=== PATIENT | male | born 1960 | race Caucasian/White ===

== ENCOUNTER 2019-11-03 15:32 | Inpatient (IN) ==
[2019-11-03] MEDS ORDERED: Morphine Sulfate 2 MG/ML SYRINGE IVP PRN (16:34)
[2019-11-03 16:37] LABS: INR 1.1
[2019-11-03 16:40] LABS: Basophils % 0.3 %; Eosinophils # 0.2 K/mcL (0.0-0.6); Eosinophils % 2.3 %; Hematocrit 36.7 % (37.5-50.1); Hemoglobin 12.2 g/dL (12.9-16.9); Immature Granulocytes % 0.4 % (0-4); Lymphocytes # 1.5 K/mcL (0.6-4.6); Lymphocytes % 21.7 %; Mean Corpuscular HGB Conc 33.2 g/dL (31.6-35.5); Mean Corpuscular Hemoglobin 30.7 pg (28.0-33.3); Mean Corpuscular Volume 92.2 fL (83.0-100.0); Mean Platelet Volume 10.1 fL (9.4-12.4); Monocytes # 0.8 K/mcL (0.0-1.3); Monocytes % 11.8 %; Neutrophils # 4.4 K/mcL (1.6-8.9); Platelet Count 217 K/mcL (140-400); Red Blood Count 3.98 M/mcL (4.19-5.50); Red Cell Distribution Width 12.6 % (11.5-14.5); Segmented Neutrophils % 63.5 %; White Blood Count 6.9 K/mcL (4.3-11.1)
[2019-11-03] MEDS ORDERED: Naloxone 0.4 MG/ML INJ IVP PRN ×2 (16:52→22:16)
[2019-11-03] MEDS ORDERED: Ondansetron 4 MG/2 ML VIAL IVP PRN ×2 (16:52→22:16)
[2019-11-03] MEDS ORDERED: 0.9 % Sodium Chloride 1,000 ML IVC SCH (17:00)
[2019-11-03] MEDS ORDERED: D5% in Water 1,000 ML IVC PRN ×2 (17:19→22:16)
[2019-11-03] MEDS ORDERED: Dextrose Gel 15 GM/37.5 ML TUBE PO PRN ×4 (17:19→22:16)
[2019-11-03] MEDS ORDERED: *HR* Dextrose 50 % in Water (Syg) 50 ML SYRINGE IVP PRN ×2 (17:19→22:16)
[2019-11-03] MEDS ORDERED: *HR* Labetalol 20 MG/4 ML SYRINGE IVP PRN ×2 (17:20→22:16)
[2019-11-03 17:46] LABS: Estimated Average Glucose 148 mg/dl
[2019-11-03] MEDS ORDERED: Insulin LISPRO 300 UNITS/3 ML VIAL SQ SCH (18:00)
[2019-11-03] MEDS ORDERED: Lidocaine 1% 20 ML MDV ONE (18:03)
[2019-11-03 18:08] LABS: Albumin 4.2 g/dL (3.5-5.7); Albumin/Globulin Ratio 1.2 (1.1-2.2); Bilirubin,Total 0.6 mg/dL (0.3-1.0); Calcium 9.8 mg/dL (8.6-10.3); Globulin 3.4 g/dL (2.4-3.5); Potassium 4.3 mEq/L (3.5-5.1); Total Protein 7.6 g/dL (6.4-8.9)
[2019-11-03] MEDS ORDERED: *HR* FentaNYL (PF) 100 MCG/2 ML VIAL ONE (18:10)
[2019-11-03] MEDS ORDERED: *HR* Midazolam HCl 2 MG/2 ML VIAL ONE (18:10)
[2019-11-03] MEDS ORDERED: *HR* Propofol 200 MG/20 ML VIAL IVP ONE (18:16)
[2019-11-03] MEDS ORDERED: Lidocaine -MPF 1% 5 ML AMPUL ONE (18:17)
[2019-11-03] MEDS ORDERED: Ondansetron 4 MG/2 ML VIAL ONE (18:17)
[2019-11-03] MEDS ORDERED: Dexamethasone 4 MG/ML VIAL ONE (18:17)
[2019-11-03] MEDS ORDERED: ROPIVACAINE/PF/NS 0.25% 1 EACH SYRINGE INTRAART ONE (18:40)
[2019-11-03] MEDS ORDERED: Ropivacaine/PF 0.5% 30 ML VIAL ONE (18:40)
[2019-11-03] MEDS ORDERED: Lidocaine -MPF 2% 2 ML VIAL ONE (19:05)
[2019-11-03] MEDS ORDERED: Acetaminophen IV 0 MG/0 ML INFUS..BTL ONE (20:55)
[2019-11-03] MEDS ORDERED: cloNIDine HCl 0.1 MG TABLET ONE (20:55)
[2019-11-03] MEDS: 0.9 % Sodium Chloride 1,000 ML IVC SCH (22:49)
[2019-11-04] MEDS: Insulin LISPRO 300 UNITS/3 ML VIAL SQ SCH ×4 (01:07→17:48)
[2019-11-04] MEDS: 0.9 % Sodium Chloride 1,000 ML IVC SCH ×2 (05:30→20:15)
[2019-11-04 07:43] LABS: Basophils # 0.1 K/mcL (0.0-0.2); Basophils % 0.8 %; Eosinophils # 0.2 K/mcL (0.0-0.6); Eosinophils % 3.7 %; Hematocrit 34.3 % (37.5-50.1); Hemoglobin 11.8 g/dL (12.9-16.9); Immature Granulocytes % 0.3 % (0-4); Lymphocytes # 1.6 K/mcL (0.6-4.6); Lymphocytes % 27.4 %; Mean Corpuscular HGB Conc 34.4 g/dL (31.6-35.5); Mean Corpuscular Hemoglobin 31.1 pg (28.0-33.3); Mean Corpuscular Volume 90.5 fL (83.0-100.0); Mean Platelet Volume 10.2 fL (9.4-12.4); Monocytes # 0.7 K/mcL (0.0-1.3); Monocytes % 12.4 %; Neutrophils # 3.3 K/mcL (1.6-8.9); Platelet Count 158 K/mcL (140-400); Red Blood Count 3.79 M/mcL (4.19-5.50); Red Cell Distribution Width 12.5 % (11.5-14.5); Segmented Neutrophils % 55.4 %; White Blood Count 5.9 K/mcL (4.3-11.1)
[2019-11-04] MEDS ORDERED: *HR* Heparin 5,000 UNIT/ML VIAL SQ SCH (08:00)
[2019-11-04] MEDS: *HR* Heparin 5,000 UNIT/ML VIAL SQ SCH ×2 (09:00→17:48)
[2019-11-04 09:05] LABS: BUN/Creatinine Ratio 19 (6-26); Blood Urea Nitrogen 23 mg/dL (8-23); Calcium 9.4 mg/dL (8.6-10.3); Carbon Dioxide 22 mEq/L (23-29); Chloride 106 mEq/L (98-107); Glucose 126 mg/dL (70-105); Osmolality,Calculated 285 (280-300); Potassium 4.2 mEq/L (3.5-5.1); Sodium 135 mEq/L (136-145); eGFR For African Americans > 60 (> 60); eGFR For Non-African Americans 59 (> 60)
[2019-11-04] MEDS ORDERED: Morphine Sulfate 2 MG/ML SYRINGE IVP SCH (13:58)
[2019-11-04] MEDS: Morphine Sulfate 2 MG/ML SYRINGE IVP PRN ×2 (14:21→20:15)
[2019-11-05] MEDS: Insulin LISPRO 300 UNITS/3 ML VIAL SQ SCH ×4 (01:01→18:54)
[2019-11-05] MEDS: Morphine Sulfate 2 MG/ML SYRINGE IVP PRN ×3 (02:31→11:58)
[2019-11-05] MEDS: 0.9 % Sodium Chloride 1,000 ML IVC SCH (02:31)
[2019-11-05] MEDS: *HR* Heparin 5,000 UNIT/ML VIAL SQ SCH ×2 (06:14→18:54)
[2019-11-05] MEDS ORDERED: 0.9 % Sodium Chloride 1,000 ML IVC SCH ×2 (12:30→17:46)
[2019-11-05] MEDS ORDERED: ROPIVACAINE/PF/NS 0.25% 1 EACH SYRINGE INTRAART ONE (14:06)
[2019-11-05] MEDS ORDERED: Ropivacaine/PF 0.5% 30 ML VIAL ONE (14:06)
[2019-11-05] MEDS ORDERED: Lidocaine -MPF 2% 5 ML VIAL ONE (14:12)
[2019-11-05] MEDS ORDERED: *HR* Midazolam HCl 5 MG/5 ML VIAL IVP ONE (14:13)
[2019-11-05] MEDS ORDERED: *HR* FentaNYL (PF) 100 MCG/2 ML VIAL ONE ×2 (14:14→16:12)
[2019-11-05] MEDS ORDERED: Ondansetron 4 MG/2 ML VIAL IVP ONE ×2 (14:17→17:46)
[2019-11-05] MEDS ORDERED: *HR* Promethazine 25 MG/ML VIAL IVP PRN ×2 (14:17→17:46)
[2019-11-05] MEDS ORDERED: *HR* OxyCODONE Immed Rel 5 MG TABLET PO PRN ×2 (14:17→17:46)
[2019-11-05] MEDS ORDERED: CeFAZolin Syr 2,000MG/20 ML 2,000 MG/20 ML SYRINGE IVPB ONE (14:30)
[2019-11-05] MEDS ORDERED: *HR* Propofol 200 MG/20 ML VIAL IVP ONE ×2 (15:01→16:49)
[2019-11-05] MEDS ORDERED: Acetaminophen IV 1,000 MG/100 ML INFUS..BTL ONE (15:08)
[2019-11-05] MEDS ORDERED: *HR* Succinylcholine 200 MG/10 ML VIAL IVP ONE (15:08)
[2019-11-05] MEDS ORDERED: Ondansetron 4 MG/2 ML VIAL ONE (15:08)
[2019-11-05] MEDS ORDERED: Lidocaine -MPF 2% 2 ML VIAL ONE (15:09)
[2019-11-05] MEDS ORDERED: Propofol 500 MG/50 ML INFUS..BTL ONE ×2 (15:09→15:41)
[2019-11-05] MEDS ORDERED: *HR* Labetalol 20 MG/4 ML SYRINGE IVP ONE (15:55)
[2019-11-05] MEDS ORDERED: *HR* HYDROMORPHONE 2 MG/ML VIAL ONE (17:08)
[2019-11-05] MEDS ORDERED: *HR* Dextrose 50 % in Water (Syg) 50 ML SYRINGE IVP PRN (17:46)
[2019-11-05] MEDS ORDERED: Dextrose Gel 15 GM/37.5 ML TUBE PO PRN ×2 (17:46)
[2019-11-05] MEDS ORDERED: Naloxone 0.4 MG/ML INJ IVP PRN (17:46)
[2019-11-05] MEDS ORDERED: Ondansetron 4 MG/2 ML VIAL IVP PRN (17:46)
[2019-11-05] MEDS ORDERED: D5% in Water 1,000 ML IVC PRN (17:46)
[2019-11-06] MEDS: Insulin LISPRO 300 UNITS/3 ML VIAL SQ SCH ×4 (00:21→18:07)
[2019-11-06] MEDS: Morphine Sulfate 2 MG/ML SYRINGE IVP PRN ×4 (01:59→21:39)
[2019-11-06] MEDS: *HR* Heparin 5,000 UNIT/ML VIAL SQ SCH ×2 (05:11→18:06)
[2019-11-07] MEDS: Insulin LISPRO 300 UNITS/3 ML VIAL SQ SCH ×4 (00:07→14:54)
[2019-11-07] MEDS: Morphine Sulfate 2 MG/ML SYRINGE IVP PRN ×5 (03:23→22:52)
[2019-11-07] MEDS: *HR* Heparin 5,000 UNIT/ML VIAL SQ SCH ×2 (06:13→14:53)
[2019-11-07] MEDS: Lisinopril 20 MG TABLET PO SCH (08:04)
[2019-11-07] MEDS: cephALEXin 500 MG CAPSULE PO SCH ×2 (15:19→19:58)
[2019-11-07] MEDS: *HR* Labetalol 20 MG/4 ML SYRINGE IVP PRN (20:08)
[2019-11-08] MEDS: *HR* Labetalol 20 MG/4 ML SYRINGE IVP PRN ×2 (00:11→05:58)
[2019-11-08] MEDS: Insulin LISPRO 300 UNITS/3 ML VIAL SQ SCH ×4 (00:16→16:45)
[2019-11-08] MEDS: *HR* Heparin 5,000 UNIT/ML VIAL SQ SCH ×2 (05:57→16:43)
[2019-11-08] MEDS: Morphine Sulfate 2 MG/ML SYRINGE IVP PRN ×5 (05:58→23:36)
[2019-11-08] MEDS: cephALEXin 500 MG CAPSULE PO SCH ×3 (08:20→19:23)
[2019-11-08] MEDS: Lisinopril 20 MG TABLET PO SCH (08:20)
[2019-11-08] MEDS ORDERED: Insulin LISPRO 300 UNITS/3 ML VIAL SQ SCH (21:00)
[2019-11-09] MEDS: *HR* Heparin 5,000 UNIT/ML VIAL SQ SCH (05:07)
[2019-11-09] MEDS: Morphine Sulfate 2 MG/ML SYRINGE IVP PRN ×2 (05:08→10:56)
[2019-11-09] MEDS: Insulin LISPRO 300 UNITS/3 ML VIAL SQ SCH ×2 (07:31→13:36)
[2019-11-09] MEDS: Lisinopril 20 MG TABLET PO SCH (08:42)
[2019-11-09] MEDS: cephALEXin 500 MG CAPSULE PO SCH ×2 (08:42→15:21)
[2019-11-09 15:38] VITALS: BP 160/86
[2019-11-09] MEDS ORDERED: *HR* Metformin 500 MG TABLET PO SCH (21:00)
== END 2019-11-09 17:23 | DRG 313 ==
LOC: 3NENU 15:32 → EMEROOARM 15:32 → SUATTDRO 19:15 → 3NENU 19:39 → SUATTDRO 11-04 11:55
PROVIDERS: ADMIT Internal Medicine; ATTEND Internal Medicine

== ENCOUNTER 2020-07-26 11:54 | Inpatient (IN) ==
[2020-07-26 13:32] LABS: BUN/Creatinine Ratio 23 (6-26); Blood Urea Nitrogen 31 mg/dL (8-23); C-Reactive Protein 81 mg/L (Less than 10); Calcium 10.3 mg/dL (8.6-10.3); Carbon Dioxide 23 mEq/L (23-29); Chloride 97 mEq/L (98-107); Glucose 274 mg/dL (70-105); Osmolality,Calculated 288 (280-300); Potassium 4.6 mEq/L (3.5-5.1); Sodium 131 mEq/L (136-145); eGFR For African Americans > 60 (> 60); eGFR For Non-African Americans 53 (> 60)
[2020-07-26 13:35] LABS: Eosinophils % 0.8 %; Lymphocytes % 13.4 %; Mean Platelet Volume 9.3 fL (9.4-12.4)
[2020-07-26 13:37] LABS: Basophils % 0.4 %; Eosinophils # 0.1 K/mcL (0.0-0.6); Hematocrit 40.2 % (37.5-50.1); Hemoglobin 13.3 g/dL (12.9-16.9); Immature Granulocytes % 1.7 % (0-4); Immature Platelets 2.4 % (1.1-6.1); Lymphocytes # 1.4 K/mcL (0.6-4.6); Mean Corpuscular HGB Conc 33.1 g/dL (31.6-35.5); Mean Corpuscular Hemoglobin 30.1 pg (28.0-33.3); Monocytes % 9.8 %; Neutrophils # 7.8 K/mcL (1.6-8.9); Platelet Count 420 K/mcL (140-400); Red Blood Count 4.42 M/mcL (4.19-5.50); Red Cell Distribution Width 12.6 % (11.5-14.5); Segmented Neutrophils % 73.9 %; White Blood Count 10.6 K/mcL (4.3-11.1)
[2020-07-26] MEDS ORDERED: *HR* FentaNYL (PF) 100 MCG/2 ML VIAL IVP ONE ×2 (13:44→16:01)
[2020-07-26] MEDS ORDERED: 0.9 % Sodium Chloride 1,000 ML IVC ONE (13:44)
[2020-07-26] MEDS ORDERED: Vancomycin 1,500 MG/265 ML IV.SOLN IVPB ONE (14:35)
[2020-07-26] MEDS ORDERED: Piperacillin/Tazobactam 3.375 GM in 0.9 % Sodium Chloride Mini Bag 100 ML IVPB ONE (14:35)
[2020-07-26] MEDS ORDERED: Naloxone 0.4 MG/ML INJ IVP PRN (16:14)
[2020-07-26 17:17] LABS: Adenovirus Not Detected (Not Detect); Coronavirus 229E Not Detected (Not Detect); Coronavirus HKU1 Not Detected (Not Detect); Coronavirus NL63 Not Detected (Not Detect); Coronavirus OC43 Not Detected (Not Detect)
[2020-07-26 17:18] LABS: Bordetella Pertussis Not Detected (Not Detect); Chlamydophila pneumoniae Not Detected (Not Detect); Human Metapneumovirus Not Detected (Not Detect); Human Rhinovirus/Enterovirus Not Detected (Not Detect); Influenza A Subtype 2009 H1 Not Detected (Not Detect); Influenza B Not Detected (Not Detect); Mycoplasma pneumoniae Not Detected (Not Detect); Parainfluenza Virus 1 Not Detected (Not Detect); Parainfluenza Virus 2 Not Detected (Not Detect); Parainfluenza Virus 3 Not Detected (Not Detect); Parainfluenza Virus 4 Not Detected (Not Detect); Respiratory Syncytial Virus Not Detected (Not Detect); SARS-CoV-2 Not Detected (Not Detect)
[2020-07-26] MEDS ORDERED: D5% in Water 1,000 ML IVC PRN (18:06)
[2020-07-26] MEDS ORDERED: Dextrose Gel 15 GM/37.5 ML TUBE PO PRN ×2 (18:06)
[2020-07-26] MEDS ORDERED: Acetaminophen 325 MG TABLET PO PRN (18:06)
[2020-07-26] MEDS ORDERED: *HR* Dextrose 50 % in Water (Vial) 50 ML VIAL IVP PRN (18:06)
[2020-07-26] MEDS: 0.9 % Sodium Chloride 1,000 ML IVC SCH (20:12)
[2020-07-26 20:54] LABS: INR 1.2
[2020-07-26] MEDS ORDERED: Insulin LISPRO 300 UNITS/3 ML VIAL SQ SCH (21:00)
[2020-07-26] MEDS: Piperacillin/Tazobactam 3.375 GM in 0.9 % Sodium Chloride Mini Bag 100 ML IVPB SCH (23:27)
[2020-07-26] MEDS: *HR* Heparin 5,000 UNIT/ML VIAL SQ SCH (23:27)
[2020-07-27 03:38] LABS: Basophils # 0.1 K/mcL (0.0-0.2); Basophils % 0.9 %; Eosinophils # 0.2 K/mcL (0.0-0.6); Eosinophils % 1.6 %; Hematocrit 37.9 % (37.5-50.1); Hemoglobin 12.3 g/dL (12.9-16.9); Immature Granulocytes % 2.8 % (0-4); Lymphocytes # 2.1 K/mcL (0.6-4.6); Lymphocytes % 21.9 %; Mean Corpuscular HGB Conc 32.5 g/dL (31.6-35.5); Mean Corpuscular Hemoglobin 30.1 pg (28.0-33.3); Mean Corpuscular Volume 92.7 fL (83.0-100.0); Mean Platelet Volume 8.9 fL (9.4-12.4); Monocytes # 1.2 K/mcL (0.0-1.3); Monocytes % 12.5 %; Neutrophils # 5.8 K/mcL (1.6-8.9); Platelet Count 284 K/mcL (140-400); Red Blood Count 4.09 M/mcL (4.19-5.50); Red Cell Distribution Width 12.8 % (11.5-14.5); Segmented Neutrophils % 60.3 %; White Blood Count 9.5 K/mcL (4.3-11.1)
[2020-07-27 04:04] LABS: BUN/Creatinine Ratio 25 (6-26); Blood Urea Nitrogen 30 mg/dL (8-23); Calcium 9.7 mg/dL (8.6-10.3); Carbon Dioxide 23 mEq/L (23-29); Chloride 100 mEq/L (98-107); Glucose 242 mg/dL (70-105); Osmolality,Calculated 288 (280-300); Potassium 4.4 mEq/L (3.5-5.1); Sodium 132 mEq/L (136-145); eGFR For African Americans > 60 (> 60); eGFR For Non-African Americans > 60 (> 60)
[2020-07-27 04:30] LABS: Estimated Average Glucose 226 mg/dl; Hemoglobin A1C 9.5 %
[2020-07-27] MEDS: Vancomycin 1,500 MG/265 ML IV.SOLN IVPB SCH ×2 (04:42→16:40)
[2020-07-27] MEDS: *HR* Heparin 5,000 UNIT/ML VIAL SQ SCH ×3 (05:10→21:30)
[2020-07-27] MEDS: Piperacillin/Tazobactam 3.375 GM in 0.9 % Sodium Chloride Mini Bag 100 ML IVPB SCH ×3 (09:06→23:11)
[2020-07-27] MEDS: Insulin LISPRO 300 UNITS/3 ML VIAL SQ SCH ×4 (09:08→21:15)
[2020-07-27] MEDS: 0.9 % Sodium Chloride 1,000 ML IVC SCH ×2 (13:07→21:29)
[2020-07-27] MEDS ORDERED: *HR* FentaNYL (PF) 100 MCG/2 ML VIAL IVP ONE (13:46)
[2020-07-27] MEDS ORDERED: *HR* FentaNYL (PF) 100 MCG/2 ML VIAL ONE (15:38)
[2020-07-27] MEDS ORDERED: *HR* Midazolam HCl 2 MG/2 ML VIAL ONE (15:38)
[2020-07-27] MEDS ORDERED: *HR* Propofol 200 MG/20 ML VIAL IVP ONE (15:42)
[2020-07-27] MEDS ORDERED: Lidocaine -MPF 2% 2 ML VIAL ONE (15:42)
[2020-07-27] MEDS ORDERED: Ondansetron 4 MG/2 ML VIAL ONE (15:42)
[2020-07-27] MEDS ORDERED: *HR* Succinylcholine 200 MG/10 ML VIAL IVP ONE (15:42)
[2020-07-27] MEDS ORDERED: Dexamethasone 4 MG/ML VIAL ONE (15:42)
[2020-07-27] MEDS ORDERED: Lidocaine -MPF 4% 5 ML AMPUL ONE (15:44)
[2020-07-27] MEDS ORDERED: Famotidine 20 MG/2 ML VIAL IVP ONE (15:55)
[2020-07-27] MEDS ORDERED: ROPIVACAINE/PF/NS 0.25% 1 EACH SYRINGE INTRAART ONE (16:01)
[2020-07-27] MEDS ORDERED: *HR* Labetalol 20 MG/4 ML SYRINGE IVP PRN ×2 (16:01→20:35)
[2020-07-27] MEDS ORDERED: *HR* Promethazine 25 MG/ML VIAL IVP PRN (16:01)
[2020-07-27] MEDS ORDERED: Ropivacaine/PF 0.5% 30 ML VIAL ONE (16:01)
[2020-07-27] MEDS ORDERED: *HR* HYDROmorphone PF 0.5 MG/0.5 ML SYRINGE IVP PRN (16:01)
[2020-07-27] MEDS ORDERED: Famotidine 20 MG/2 ML VIAL ONE (16:01)
[2020-07-27] MEDS ORDERED: Ondansetron 4 MG/2 ML VIAL IVP ONE (16:01)
[2020-07-27] MEDS ORDERED: EPHEDrine 50 MG/ML VIAL ONE (16:58)
[2020-07-27] MEDS ORDERED: *HR* PHENYLEPHRINE 1,000 MCG/10 ML SYRINGE IVP ONE ×3 (17:04→19:03)
[2020-07-27] MEDS ORDERED: *HR* HYDROMORPHONE 2 MG/ML VIAL ONE (18:07)
[2020-07-27] MEDS ORDERED: *HR* Labetalol 20 MG/4 ML SYRINGE IVP ONE (19:59)
[2020-07-27] MEDS ORDERED: Naloxone 0.4 MG/ML INJ IVP PRN (20:35)
[2020-07-27] MEDS ORDERED: Acetaminophen 325 MG TABLET PO PRN (20:35)
[2020-07-27] MEDS ORDERED: Dextrose Gel 15 GM/37.5 ML TUBE PO PRN ×2 (20:35)
[2020-07-27] MEDS ORDERED: *HR* Dextrose 50 % in Water (Vial) 50 ML VIAL IVP PRN (20:35)
[2020-07-27] MEDS ORDERED: D5% in Water 1,000 ML IVC PRN (20:35)
[2020-07-27] MEDS ORDERED: Morphine Sulfate 2 MG/ML SYRINGE IVP PRN (22:53)
[2020-07-28 02:18] LABS: Basophils % 0.3 %; Eosinophils % 0.1 %; Hematocrit 34.1 % (37.5-50.1); Hemoglobin 10.9 g/dL (12.9-16.9); Immature Granulocytes % 2.2 % (0-4); Lymphocytes # 0.7 K/mcL (0.6-4.6); Lymphocytes % 7.2 %; Mean Corpuscular Hemoglobin 29.4 pg (28.0-33.3); Mean Corpuscular Volume 91.9 fL (83.0-100.0); Mean Platelet Volume 8.7 fL (9.4-12.4); Monocytes # 0.4 K/mcL (0.0-1.3); Neutrophils # 7.9 K/mcL (1.6-8.9); Platelet Count 283 K/mcL (140-400); Red Blood Count 3.71 M/mcL (4.19-5.50); Red Cell Distribution Width 12.9 % (11.5-14.5); Segmented Neutrophils % 86.2 %; White Blood Count 9.1 K/mcL (4.3-11.1)
[2020-07-28 02:36] LABS: Alanine Aminotransferase 94 Units/L (7-52); Albumin 3.2 g/dL (3.5-5.7); Albumin/Globulin Ratio 0.9 (1.1-2.2); Alkaline Phosphatase 259 Units/L (34-104); Aspartate Amino Transferase 38 Units/L (13-39); BUN/Creatinine Ratio 23 (6-26); Bilirubin,Total 0.3 mg/dL (0.3-1.0); Blood Urea Nitrogen 25 mg/dL (8-23); Calcium 9.1 mg/dL (8.6-10.3); Carbon Dioxide 18 mEq/L (23-29); Chloride 105 mEq/L (98-107); Globulin 3.7 g/dL (2.4-3.5); Glucose 216 mg/dL (70-105); Osmolality,Calculated 291 (280-300); Potassium 5.2 mEq/L (3.5-5.1); Sodium 135 mEq/L (136-145); Total Protein 6.9 g/dL (6.4-8.9); eGFR For African Americans > 60 (> 60); eGFR For Non-African Americans > 60 (> 60)
[2020-07-28] MEDS ORDERED: Vancomycin 1,500 MG/265 ML IV.SOLN IVPB SCH (03:00)
[2020-07-28] MEDS: *HR* Heparin 5,000 UNIT/ML VIAL SQ SCH ×3 (05:02→21:37)
[2020-07-28] MEDS: Piperacillin/Tazobactam 3.375 GM in 0.9 % Sodium Chloride Mini Bag 100 ML IVPB SCH ×2 (08:36→16:42)
[2020-07-28] MEDS: 0.9 % Sodium Chloride 1,000 ML IVC SCH (08:44)
[2020-07-28] MEDS: Insulin LISPRO 300 UNITS/3 ML VIAL SQ SCH ×4 (08:50→21:22)
[2020-07-28] MEDS ORDERED: Vancomycin 1,250 MG/262.5 ML IV.SOLN IVPB SCH (09:00)
[2020-07-28] MEDS ORDERED: lisinopriL 20 MG TABLET PO SCH ×2 (09:00)
[2020-07-28] MEDS: *HR* HYDROmorphone PF 0.5 MG/0.5 ML SYRINGE IVP PRN (20:09)
[2020-07-29] MEDS: Piperacillin/Tazobactam 3.375 GM in 0.9 % Sodium Chloride Mini Bag 100 ML IVPB SCH ×4 (00:20→23:16)
[2020-07-29] MEDS: 0.9 % Sodium Chloride 1,000 ML IVC SCH ×2 (00:20→14:08)
[2020-07-29] MEDS: *HR* Heparin 5,000 UNIT/ML VIAL SQ SCH ×3 (04:48→21:09)
[2020-07-29 06:44] LABS: Hematocrit 38.3 % (37.5-50.1); Hemoglobin 11.6 g/dL (12.9-16.9); Mean Corpuscular HGB Conc 30.3 g/dL (31.6-35.5); Mean Corpuscular Hemoglobin 29.3 pg (28.0-33.3); Mean Corpuscular Volume 96.7 fL (83.0-100.0); Mean Platelet Volume 8.9 fL (9.4-12.4); Platelet Count 281 K/mcL (140-400); Red Blood Count 3.96 M/mcL (4.19-5.50); Red Cell Distribution Width 12.9 % (11.5-14.5); White Blood Count 8.2 K/mcL (4.3-11.1)
[2020-07-29 07:07] LABS: BUN/Creatinine Ratio 19 (6-26); Blood Urea Nitrogen 19 mg/dL (8-23); Calcium 9.1 mg/dL (8.6-10.3); Carbon Dioxide 19 mEq/L (23-29); Chloride 107 mEq/L (98-107); Glucose 119 mg/dL (70-105); Osmolality,Calculated 285 (280-300); Potassium 4.4 mEq/L (3.5-5.1); Sodium 136 mEq/L (136-145); eGFR For African Americans > 60 (> 60); eGFR For Non-African Americans > 60 (> 60)
[2020-07-29] MEDS: *HR* Promethazine 25 MG/ML VIAL IVP PRN (08:38)
[2020-07-29] MEDS: Insulin LISPRO 300 UNITS/3 ML VIAL SQ SCH ×4 (08:41→21:11)
[2020-07-29] MEDS ORDERED: polyethylene glycoL 3350 17 GM POWD.PACK PO PRN (10:22)
[2020-07-29] MEDS: *HR* HYDROmorphone PF 0.5 MG/0.5 ML SYRINGE IVP PRN (23:22)
[2020-07-30] MEDS ORDERED: *HR* Labetalol 20 MG/4 ML SYRINGE IVP PRN (00:14)
[2020-07-30] MEDS: *HR* Promethazine 25 MG/ML VIAL IVP PRN (04:21)
[2020-07-30] MEDS: *HR* Heparin 5,000 UNIT/ML VIAL SQ SCH ×3 (05:12→22:25)
[2020-07-30] MEDS: 0.9 % Sodium Chloride 1,000 ML IVC SCH (07:02)
[2020-07-30] MEDS: Piperacillin/Tazobactam 3.375 GM in 0.9 % Sodium Chloride Mini Bag 100 ML IVPB SCH ×3 (08:46→23:38)
[2020-07-30] MEDS: Insulin LISPRO 300 UNITS/3 ML VIAL SQ SCH ×4 (08:48→22:26)
[2020-07-30] MEDS: Ondansetron 4 MG/2 ML VIAL IVP PRN ×2 (09:26→22:23)
[2020-07-30] MEDS: *HR* HYDROmorphone PF 0.5 MG/0.5 ML SYRINGE IVP PRN (22:19)
[2020-07-31] MEDS: *HR* Heparin 5,000 UNIT/ML VIAL SQ SCH ×3 (05:30→20:49)
[2020-07-31] MEDS: Insulin LISPRO 300 UNITS/3 ML VIAL SQ SCH ×4 (08:34→20:50)
[2020-07-31] MEDS: Piperacillin/Tazobactam 3.375 GM in 0.9 % Sodium Chloride Mini Bag 100 ML IVPB SCH ×3 (08:52→23:45)
[2020-07-31 10:18] LABS: Vancomycin,Trough 12 mcg/mL (5-10)
[2020-07-31 10:32] LABS: BUN/Creatinine Ratio 14 (6-26); Blood Urea Nitrogen 12 mg/dL (8-23); eGFR For African Americans > 60 (> 60); eGFR For Non-African Americans > 60 (> 60)
[2020-07-31] MEDS: *HR* HYDROmorphone PF 0.5 MG/0.5 ML SYRINGE IVP PRN (11:31)
[2020-07-31] MEDS ORDERED: Ketorolac 15 MG/ML VIAL IVP ONE (15:40)
[2020-07-31] MEDS: amLODIPine 5 MG TABLET PO SCH (16:32)
[2020-08-01] MEDS: Ondansetron 4 MG/2 ML VIAL IVP PRN ×2 (00:32→08:00)
[2020-08-01] MEDS: *HR* Heparin 5,000 UNIT/ML VIAL SQ SCH ×3 (05:13→23:48)
[2020-08-01 05:22] LABS: Mean Corpuscular HGB Conc 30.9 g/dL (31.6-35.5); Mean Corpuscular Volume 93.8 fL (83.0-100.0); Mean Platelet Volume 8.9 fL (9.4-12.4); Platelet Count 279 K/mcL (140-400); Red Blood Count 3.41 M/mcL (4.19-5.50); White Blood Count 8.1 K/mcL (4.3-11.1)
[2020-08-01 05:23] LABS: Hemoglobin 9.9 g/dL (12.9-16.9)
[2020-08-01 06:07] LABS: BUN/Creatinine Ratio 15 (6-26); Blood Urea Nitrogen 12 mg/dL (8-23); Calcium 8.9 mg/dL (8.6-10.3); Carbon Dioxide 19 mEq/L (23-29); Chloride 106 mEq/L (98-107); Glucose 109 mg/dL (70-105); Osmolality,Calculated 282 (280-300); Potassium 3.8 mEq/L (3.5-5.1); Sodium 136 mEq/L (136-145); eGFR For African Americans > 60 (> 60); eGFR For Non-African Americans > 60 (> 60)
[2020-08-01] MEDS: lisinopriL 20 MG TABLET PO SCH (07:54)
[2020-08-01] MEDS: Piperacillin/Tazobactam 3.375 GM in 0.9 % Sodium Chloride Mini Bag 100 ML IVPB SCH ×2 (07:55→17:36)
[2020-08-01] MEDS: amLODIPine 5 MG TABLET PO SCH (07:55)
[2020-08-01] MEDS: Insulin LISPRO 300 UNITS/3 ML VIAL SQ SCH ×4 (07:57→20:38)
[2020-08-01] MEDS ORDERED: *HR* Labetalol 20 MG/4 ML SYRINGE IVP PRN (14:19)
[2020-08-01] MEDS: carvediloL 6.25 MG TABLET PO SCH (17:36)
[2020-08-02] MEDS: Piperacillin/Tazobactam 3.375 GM in 0.9 % Sodium Chloride Mini Bag 100 ML IVPB SCH ×2 (01:25→08:21)
[2020-08-02 04:59] LABS: Basophils % 0.4 %; Eosinophils # 0.2 K/mcL (0.0-0.6); Eosinophils % 2.1 %; Hematocrit 34.7 % (37.5-50.1); Hemoglobin 11.2 g/dL (12.9-16.9); Immature Granulocytes % 1.2 % (0-4); Lymphocytes # 1.6 K/mcL (0.6-4.6); Lymphocytes % 16.8 %; Mean Corpuscular HGB Conc 32.3 g/dL (31.6-35.5); Mean Corpuscular Hemoglobin 30.3 pg (28.0-33.3); Mean Corpuscular Volume 93.8 fL (83.0-100.0); Mean Platelet Volume 9.2 fL (9.4-12.4); Monocytes % 10.2 %; Neutrophils # 6.6 K/mcL (1.6-8.9); Platelet Count 320 K/mcL (140-400); Red Cell Distribution Width 12.9 % (11.5-14.5); Segmented Neutrophils % 69.3 %; White Blood Count 9.5 K/mcL (4.3-11.1)
[2020-08-02 05:21] LABS: BUN/Creatinine Ratio 12 (6-26); Blood Urea Nitrogen 10 mg/dL (8-23); Calcium 9.4 mg/dL (8.6-10.3); Carbon Dioxide 20 mEq/L (23-29); Chloride 106 mEq/L (98-107); Glucose 108 mg/dL (70-105); Osmolality,Calculated 282 (280-300); Potassium 3.8 mEq/L (3.5-5.1); Sodium 136 mEq/L (136-145); eGFR For African Americans > 60 (> 60); eGFR For Non-African Americans > 60 (> 60)
[2020-08-02] MEDS: *HR* Heparin 5,000 UNIT/ML VIAL SQ SCH (05:47)
[2020-08-02 06:37] VITALS: BP 145/81
[2020-08-02] MEDS: amLODIPine 5 MG TABLET PO SCH (08:22)
[2020-08-02] MEDS: lisinopriL 20 MG TABLET PO SCH (08:23)
[2020-08-02] MEDS: Insulin LISPRO 300 UNITS/3 ML VIAL SQ SCH ×2 (08:23→12:30)
[2020-08-02] MEDS: carvediloL 6.25 MG TABLET PO SCH (08:23)
[2020-08-02] MEDS ORDERED: Lidocaine -MPF 1% 5 ML AMPUL INFILT ONE (11:56)
== END 2020-08-02 15:26 | disposition home health service (06) | DRG 313 ==
LOC: EMEROOARM 11:54 → 3NENU 11:54 → SUATTDRO 07-27 13:09
PROVIDERS: ADMIT Internal Medicine; ATTEND Internal Medicine

== ENCOUNTER 2020-09-08 08:48 | Inpatient (IN) ==
[2020-09-08] MEDS ORDERED: Isovue-370 500 ML BOTTLE IVP ONE (09:17)
[2020-09-08 09:53] LABS: Basophils # 0.1 K/mcL (0.0-0.2); Basophils % 0.7 %; Eosinophils # 0.3 K/mcL (0.0-0.6); Eosinophils % 3.2 %; Hematocrit 37.5 % (37.5-50.1); Hemoglobin 12.2 g/dL (12.9-16.9); Immature Granulocytes % 0.5 % (0-4); Lymphocytes # 1.6 K/mcL (0.6-4.6); Lymphocytes % 19.7 %; Mean Corpuscular HGB Conc 32.5 g/dL (31.6-35.5); Mean Corpuscular Hemoglobin 28.6 pg (28.0-33.3); Mean Corpuscular Volume 87.8 fL (83.0-100.0); Mean Platelet Volume 9.7 fL (9.4-12.4); Monocytes # 0.9 K/mcL (0.0-1.3); Monocytes % 11.2 %; Neutrophils # 5.3 K/mcL (1.6-8.9); Platelet Count 239 K/mcL (140-400); Red Blood Count 4.27 M/mcL (4.19-5.50); Red Cell Distribution Width 13.7 % (11.5-14.5); Segmented Neutrophils % 64.7 %; White Blood Count 8.2 K/mcL (4.3-11.1)
[2020-09-08 10:11] LABS: BUN/Creatinine Ratio 9 (6-26); Blood Urea Nitrogen 15 mg/dL (8-23); Calcium 9.5 mg/dL (8.6-10.3); Carbon Dioxide 18 mEq/L (23-29); Chloride 104 mEq/L (98-107); Glucose 142 mg/dL (70-105); Osmolality,Calculated 279 (280-300); Sodium 133 mEq/L (136-145); eGFR For African Americans 48 (> 60); eGFR For Non-African Americans 40 (> 60)
[2020-09-08 10:14] LABS: C-Reactive Protein < 5 mg/L (Less than 10)
[2020-09-08] MEDS ORDERED: 0.9 % Sodium Chloride 1,000 ML IVC ONE (11:08)
[2020-09-08] MEDS ORDERED: Ondansetron 4 MG/2 ML VIAL IVP STA (11:28)
[2020-09-08] MEDS ORDERED: Naloxone 0.4 MG/ML INJ IVP PRN (15:26)
[2020-09-08] MEDS ORDERED: *HR* Dextrose 50 % in Water (Vial) 50 ML VIAL IVP PRN (15:39)
[2020-09-08] MEDS ORDERED: Dextrose Gel 15 GM/37.5 ML TUBE PO PRN ×2 (15:39)
[2020-09-08] MEDS ORDERED: D5% in Water 1,000 ML IVC PRN (15:39)
[2020-09-08] MEDS ORDERED: *HR* Labetalol 20 MG/4 ML SYRINGE IVP PRN (15:42)
[2020-09-08] MEDS: *HR* OxyCODONE/APAP 5/325 TABLET PO PRN (16:04)
[2020-09-08] MEDS: Insulin LISPRO 300 UNITS/3 ML VIAL SQ SCH ×2 (17:40→21:10)
[2020-09-08] MEDS: 0.9 % Sodium Chloride 1,000 ML IVC SCH (18:40)
[2020-09-08] MEDS: *HR* OxyCODONE/APAP 10/325 TABLET PO PRN (21:14)
[2020-09-08] MEDS: Doxycycline 100 MG CAPSULE PO SCH (21:14)
[2020-09-08] MEDS: *HR* Heparin 5,000 UNIT/ML VIAL SQ SCH (21:14)
[2020-09-09 05:39] LABS: BUN/Creatinine Ratio 11 (6-26); Blood Urea Nitrogen 13 mg/dL (8-23); Calcium 8.5 mg/dL (8.6-10.3); Carbon Dioxide 21 mEq/L (23-29); Chloride 108 mEq/L (98-107); Glucose 86 mg/dL (70-105); Osmolality,Calculated 279 (280-300); Potassium 3.9 mEq/L (3.5-5.1); Sodium 135 mEq/L (136-145); eGFR For African Americans > 60 (> 60); eGFR For Non-African Americans > 60 (> 60)
[2020-09-09] MEDS: *HR* Heparin 5,000 UNIT/ML VIAL SQ SCH ×3 (06:06→23:06)
[2020-09-09] MEDS: *HR* OxyCODONE/APAP 10/325 TABLET PO PRN ×3 (06:09→18:36)
[2020-09-09] MEDS: Insulin LISPRO 300 UNITS/3 ML VIAL SQ SCH ×4 (08:08→23:05)
[2020-09-09] MEDS ORDERED: NON-FORMULARY MEDICATION 1 EACH EACH (Lisinopril [Zestril] 40 MG) PO SCH (09:00)
[2020-09-09] MEDS: Doxycycline 100 MG CAPSULE PO SCH ×2 (10:40→23:06)
[2020-09-09] MEDS: amLODIPine 5 MG TABLET PO SCH (10:40)
[2020-09-10] MEDS: *HR* Heparin 5,000 UNIT/ML VIAL SQ SCH ×3 (06:49→20:29)
[2020-09-10] MEDS: Insulin LISPRO 300 UNITS/3 ML VIAL SQ SCH ×4 (07:39→20:31)
[2020-09-10] MEDS: *HR* OxyCODONE/APAP 10/325 TABLET PO PRN ×3 (07:43→20:28)
[2020-09-10] MEDS: amLODIPine 5 MG TABLET PO SCH (10:30)
[2020-09-10] MEDS: Doxycycline 100 MG CAPSULE PO SCH ×2 (10:31→20:28)
[2020-09-10] MEDS: Ondansetron 4 MG/2 ML VIAL IVP PRN (22:44)
[2020-09-11] MEDS: *HR* Heparin 5,000 UNIT/ML VIAL SQ SCH ×3 (06:29→21:17)
[2020-09-11 08:38] LABS: Basophils % 0.4 %; Eosinophils # 0.2 K/mcL (0.0-0.6); Eosinophils % 4.4 %; Hematocrit 33.3 % (37.5-50.1); Hemoglobin 10.7 g/dL (12.9-16.9); Immature Granulocytes % 0.4 % (0-4); Lymphocytes # 1.3 K/mcL (0.6-4.6); Lymphocytes % 27.9 %; Mean Corpuscular HGB Conc 32.1 g/dL (31.6-35.5); Mean Corpuscular Hemoglobin 28.9 pg (28.0-33.3); Mean Platelet Volume 9.3 fL (9.4-12.4); Monocytes # 0.6 K/mcL (0.0-1.3); Monocytes % 12.2 %; Neutrophils # 2.5 K/mcL (1.6-8.9); Platelet Count 153 K/mcL (140-400); Red Cell Distribution Width 13.4 % (11.5-14.5); Segmented Neutrophils % 54.7 %; White Blood Count 4.5 K/mcL (4.3-11.1)
[2020-09-11 08:58] LABS: BUN/Creatinine Ratio 12 (6-26); Blood Urea Nitrogen 14 mg/dL (8-23); Carbon Dioxide 21 mEq/L (23-29); Chloride 108 mEq/L (98-107); Glucose 122 mg/dL (70-105); Osmolality,Calculated 286 (280-300); Potassium 3.9 mEq/L (3.5-5.1); Sodium 137 mEq/L (136-145); eGFR For African Americans > 60 (> 60); eGFR For Non-African Americans > 60 (> 60)
[2020-09-11] MEDS: amLODIPine 5 MG TABLET PO SCH (09:18)
[2020-09-11] MEDS: Doxycycline 100 MG CAPSULE PO SCH ×2 (09:18→21:17)
[2020-09-11] MEDS: *HR* OxyCODONE/APAP 10/325 TABLET PO PRN ×3 (09:19→21:16)
[2020-09-11] MEDS: Insulin LISPRO 300 UNITS/3 ML VIAL SQ SCH ×4 (09:20→21:11)
[2020-09-11] MEDS: 0.9 % Sodium Chloride 1,000 ML IVC SCH (18:38)
[2020-09-12 03:14] LABS: Hematocrit 31.1 % (37.5-50.1); Hemoglobin 9.9 g/dL (12.9-16.9); Mean Corpuscular HGB Conc 31.8 g/dL (31.6-35.5); Mean Corpuscular Hemoglobin 28.6 pg (28.0-33.3); Mean Corpuscular Volume 89.9 fL (83.0-100.0); Mean Platelet Volume 9.4 fL (9.4-12.4); Platelet Count 127 K/mcL (140-400); Red Blood Count 3.46 M/mcL (4.19-5.50); Red Cell Distribution Width 13.5 % (11.5-14.5); White Blood Count 4.2 K/mcL (4.3-11.1)
[2020-09-12 03:34] LABS: BUN/Creatinine Ratio 13 (6-26); Blood Urea Nitrogen 16 mg/dL (8-23); Carbon Dioxide 24 mEq/L (23-29); Chloride 107 mEq/L (98-107); Glucose 117 mg/dL (70-105); Magnesium 1.5 mg/dL (1.6-2.6); Osmolality,Calculated 286 (280-300); Phosphorous 3.8 mg/dL (2.7-4.5); Potassium 3.8 mEq/L (3.5-5.1); Sodium 137 mEq/L (136-145); eGFR For African Americans > 60 (> 60); eGFR For Non-African Americans > 60 (> 60)
[2020-09-12] MEDS: *HR* Heparin 5,000 UNIT/ML VIAL SQ SCH ×3 (05:23→21:27)
[2020-09-12] MEDS: amLODIPine 5 MG TABLET PO SCH (09:36)
[2020-09-12] MEDS: *HR* OxyCODONE/APAP 10/325 TABLET PO PRN ×3 (09:36→21:30)
[2020-09-12] MEDS: Doxycycline 100 MG CAPSULE PO SCH ×2 (09:36→21:27)
[2020-09-12] MEDS: Insulin LISPRO 300 UNITS/3 ML VIAL SQ SCH ×4 (09:37→21:25)
[2020-09-13] MEDS: *HR* Heparin 5,000 UNIT/ML VIAL SQ SCH ×3 (04:43→21:05)
[2020-09-13 05:12] LABS: Hematocrit 32.9 % (37.5-50.1); Hemoglobin 10.4 g/dL (12.9-16.9); Mean Corpuscular HGB Conc 31.6 g/dL (31.6-35.5); Mean Corpuscular Hemoglobin 28.4 pg (28.0-33.3); Mean Corpuscular Volume 89.9 fL (83.0-100.0); Mean Platelet Volume 9.6 fL (9.4-12.4); Platelet Count 159 K/mcL (140-400); Red Blood Count 3.66 M/mcL (4.19-5.50); Red Cell Distribution Width 13.5 % (11.5-14.5); White Blood Count 4.9 K/mcL (4.3-11.1)
[2020-09-13 05:34] LABS: BUN/Creatinine Ratio 14 (6-26); Blood Urea Nitrogen 16 mg/dL (8-23); Calcium 9.2 mg/dL (8.6-10.3); Carbon Dioxide 21 mEq/L (23-29); Chloride 107 mEq/L (98-107); Glucose 132 mg/dL (70-105); Magnesium 1.7 mg/dL (1.6-2.6); Osmolality,Calculated 289 (280-300); Sodium 138 mEq/L (136-145); eGFR For African Americans > 60 (> 60); eGFR For Non-African Americans > 60 (> 60)
[2020-09-13] MEDS: Doxycycline 100 MG CAPSULE PO SCH ×2 (08:30→21:08)
[2020-09-13] MEDS: amLODIPine 5 MG TABLET PO SCH (08:30)
[2020-09-13] MEDS: Insulin LISPRO 300 UNITS/3 ML VIAL SQ SCH ×4 (08:34→21:01)
[2020-09-13] MEDS: *HR* OxyCODONE/APAP 5/325 TABLET PO PRN ×2 (08:36→16:34)
[2020-09-13] MEDS: *HR* OxyCODONE/APAP 10/325 TABLET PO PRN ×2 (12:54→20:37)
[2020-09-14] MEDS: *HR* Heparin 5,000 UNIT/ML VIAL SQ SCH ×3 (05:04→21:18)
[2020-09-14 05:15] LABS: Hematocrit 31.3 % (37.5-50.1); Hemoglobin 9.9 g/dL (12.9-16.9); Mean Corpuscular HGB Conc 31.6 g/dL (31.6-35.5); Mean Corpuscular Hemoglobin 28.7 pg (28.0-33.3); Mean Corpuscular Volume 90.7 fL (83.0-100.0); Mean Platelet Volume 9.5 fL (9.4-12.4); Platelet Count 137 K/mcL (140-400); Red Blood Count 3.45 M/mcL (4.19-5.50); Red Cell Distribution Width 13.8 % (11.5-14.5); White Blood Count 4.1 K/mcL (4.3-11.1)
[2020-09-14 05:22] LABS: INR 1.1; Prothrombin Time 12.6 Seconds (9.4-12.1)
[2020-09-14 05:33] LABS: BUN/Creatinine Ratio 15 (6-26); Blood Urea Nitrogen 16 mg/dL (8-23); Calcium 9.1 mg/dL (8.6-10.3); Carbon Dioxide 23 mEq/L (23-29); Chloride 107 mEq/L (98-107); Glucose 126 mg/dL (70-105); Magnesium 1.7 mg/dL (1.6-2.6); Osmolality,Calculated 283 (280-300); Phosphorous 4.1 mg/dL (2.7-4.5); Potassium 3.9 mEq/L (3.5-5.1); Sodium 135 mEq/L (136-145); eGFR For African Americans > 60 (> 60); eGFR For Non-African Americans > 60 (> 60)
[2020-09-14] MEDS: Insulin LISPRO 300 UNITS/3 ML VIAL SQ SCH ×4 (08:48→21:12)
[2020-09-14] MEDS: Doxycycline 100 MG CAPSULE PO SCH ×2 (09:24→21:17)
[2020-09-14] MEDS: *HR* OxyCODONE/APAP 10/325 TABLET PO PRN ×3 (09:24→21:17)
[2020-09-14] MEDS: amLODIPine 5 MG TABLET PO SCH (09:24)
[2020-09-14 21:09] LABS: Adenovirus Not Detected (Not Detect); Bordetella Pertussis Not Detected (Not Detect); Chlamydophila pneumoniae Not Detected (Not Detect); Coronavirus 229E Not Detected (Not Detect); Coronavirus HKU1 Not Detected (Not Detect); Coronavirus NL63 Not Detected (Not Detect); Coronavirus OC43 Not Detected (Not Detect); Human Metapneumovirus Not Detected (Not Detect); Human Rhinovirus/Enterovirus Not Detected (Not Detect); Influenza A Subtype 2009 H1 Not Detected (Not Detect); Influenza B Not Detected (Not Detect); Mycoplasma pneumoniae Not Detected (Not Detect); Parainfluenza Virus 1 Not Detected (Not Detect); Parainfluenza Virus 2 Not Detected (Not Detect); Parainfluenza Virus 3 Not Detected (Not Detect); Parainfluenza Virus 4 Not Detected (Not Detect); Respiratory Syncytial Virus Not Detected (Not Detect); SARS-CoV-2 Not Detected (Not Detect)
[2020-09-14] MEDS: Ondansetron 4 MG/2 ML VIAL IVP PRN (22:14)
[2020-09-15 04:20] LABS: Hematocrit 30.8 % (37.5-50.1); Hemoglobin 9.6 g/dL (12.9-16.9); Mean Corpuscular HGB Conc 31.2 g/dL (31.6-35.5); Mean Corpuscular Hemoglobin 28.7 pg (28.0-33.3); Mean Corpuscular Volume 91.9 fL (83.0-100.0); Platelet Count 135 K/mcL (140-400); Red Blood Count 3.35 M/mcL (4.19-5.50); Red Cell Distribution Width 13.9 % (11.5-14.5); White Blood Count 4.5 K/mcL (4.3-11.1)
[2020-09-15 04:31] LABS: BUN/Creatinine Ratio 16 (6-26); Blood Urea Nitrogen 16 mg/dL (8-23); Calcium 8.9 mg/dL (8.6-10.3); Carbon Dioxide 23 mEq/L (23-29); Chloride 109 mEq/L (98-107); Glucose 136 mg/dL (70-105); Magnesium 1.6 mg/dL (1.6-2.6); Osmolality,Calculated 287 (280-300); Sodium 137 mEq/L (136-145); eGFR For African Americans > 60 (> 60); eGFR For Non-African Americans > 60 (> 60)
[2020-09-15] MEDS: *HR* Heparin 5,000 UNIT/ML VIAL SQ SCH ×3 (05:21→21:04)
[2020-09-15] MEDS: *HR* OxyCODONE/APAP 10/325 TABLET PO PRN ×3 (05:25→21:54)
[2020-09-15] MEDS: Insulin LISPRO 300 UNITS/3 ML VIAL SQ SCH ×4 (07:24→20:49)
[2020-09-15] MEDS: Doxycycline 100 MG CAPSULE PO SCH ×2 (08:29→19:58)
[2020-09-15] MEDS: amLODIPine 5 MG TABLET PO SCH (08:29)
[2020-09-15] MEDS: Ondansetron 4 MG/2 ML VIAL IVP PRN ×2 (10:47→21:03)
[2020-09-15] MEDS: *HR* OxyCODONE/APAP 5/325 TABLET PO PRN (14:21)
[2020-09-15] MEDS ORDERED: Lidocaine 1% 20 ML MDV ONE (16:33)
[2020-09-15] MEDS ORDERED: *HR* FentaNYL (PF) 100 MCG/2 ML VIAL ONE (17:40)
[2020-09-15] MEDS ORDERED: Ondansetron 4 MG/2 ML VIAL ONE (17:41)
[2020-09-15] MEDS ORDERED: Dexamethasone 4 MG/ML VIAL ONE (17:41)
[2020-09-15] MEDS ORDERED: *HR* Midazolam HCl 2 MG/2 ML VIAL ONE (17:41)
[2020-09-15] MEDS ORDERED: Lidocaine -MPF 2% 2 ML VIAL ONE (17:41)
[2020-09-15] MEDS ORDERED: *HR* Propofol 200 MG/20 ML VIAL IVP ONE (17:41)
[2020-09-15] MEDS ORDERED: EPHEDrine 50 MG/ML VIAL ONE (18:07)
[2020-09-15] MEDS ORDERED: *HR* PHENYLEPHRINE 1,000 MCG/10 ML SYRINGE IVP ONE (18:18)
[2020-09-15] MEDS ORDERED: Naloxone 0.4 MG/ML INJ IVP PRN (19:29)
[2020-09-15] MEDS ORDERED: Dextrose Gel 15 GM/37.5 ML TUBE PO PRN ×2 (19:29)
[2020-09-15] MEDS ORDERED: *HR* OxyCODONE/APAP 5/325 TABLET PO PRN (19:29)
[2020-09-15] MEDS ORDERED: D5% in Water 1,000 ML IVC PRN (19:29)
[2020-09-15] MEDS ORDERED: *HR* Dextrose 50 % in Water (Vial) 50 ML VIAL IVP PRN (19:29)
[2020-09-16] MEDS: *HR* OxyCODONE/APAP 10/325 TABLET PO PRN ×4 (03:14→22:05)
[2020-09-16 04:02] LABS: Basophils % 0.4 %; Eosinophils # 0.2 K/mcL (0.0-0.6); Eosinophils % 3.7 %; Hematocrit 29.6 % (37.5-50.1); Hemoglobin 9.5 g/dL (12.9-16.9); Immature Granulocytes % 0.2 % (0-4); Lymphocytes # 1.1 K/mcL (0.6-4.6); Lymphocytes % 23.9 %; Mean Corpuscular HGB Conc 32.1 g/dL (31.6-35.5); Mean Corpuscular Hemoglobin 29.3 pg (28.0-33.3); Mean Corpuscular Volume 91.4 fL (83.0-100.0); Mean Platelet Volume 9.8 fL (9.4-12.4); Monocytes # 0.5 K/mcL (0.0-1.3); Monocytes % 10.8 %; Neutrophils # 2.8 K/mcL (1.6-8.9); Platelet Count 126 K/mcL (140-400); Red Blood Count 3.24 M/mcL (4.19-5.50); Red Cell Distribution Width 13.5 % (11.5-14.5); White Blood Count 4.6 K/mcL (4.3-11.1)
[2020-09-16 04:19] LABS: BUN/Creatinine Ratio 13 (6-26); Blood Urea Nitrogen 13 mg/dL (8-23); Carbon Dioxide 23 mEq/L (23-29); Chloride 106 mEq/L (98-107); Glucose 133 mg/dL (70-105); Magnesium 1.7 mg/dL (1.6-2.6); Osmolality,Calculated 282 (280-300); Phosphorous 3.9 mg/dL (2.7-4.5); Potassium 3.5 mEq/L (3.5-5.1); Sodium 135 mEq/L (136-145); eGFR For African Americans > 60 (> 60); eGFR For Non-African Americans > 60 (> 60)
[2020-09-16] MEDS: *HR* Heparin 5,000 UNIT/ML VIAL SQ SCH ×3 (05:20→22:06)
[2020-09-16] MEDS: Insulin LISPRO 300 UNITS/3 ML VIAL SQ SCH ×4 (08:43→22:24)
[2020-09-16] MEDS: Doxycycline 100 MG CAPSULE PO SCH ×2 (08:45→22:15)
[2020-09-16] MEDS: amLODIPine 5 MG TABLET PO SCH (08:45)
[2020-09-17 03:26] LABS: Basophils % 0.7 %; Eosinophils # 0.2 K/mcL (0.0-0.6); Eosinophils % 4.7 %; Hematocrit 30.7 % (37.5-50.1); Hemoglobin 9.9 g/dL (12.9-16.9); Immature Granulocytes % 0.2 % (0-4); Lymphocytes # 1.1 K/mcL (0.6-4.6); Lymphocytes % 26.8 %; Mean Corpuscular HGB Conc 32.2 g/dL (31.6-35.5); Mean Corpuscular Hemoglobin 29.7 pg (28.0-33.3); Mean Corpuscular Volume 92.2 fL (83.0-100.0); Mean Platelet Volume 9.5 fL (9.4-12.4); Monocytes # 0.5 K/mcL (0.0-1.3); Monocytes % 12.4 %; Neutrophils # 2.4 K/mcL (1.6-8.9); Platelet Count 125 K/mcL (140-400); Red Blood Count 3.33 M/mcL (4.19-5.50); Red Cell Distribution Width 13.5 % (11.5-14.5); Segmented Neutrophils % 55.2 %; White Blood Count 4.3 K/mcL (4.3-11.1)
[2020-09-17] MEDS: *HR* OxyCODONE/APAP 10/325 TABLET PO PRN ×3 (03:29→13:48)
[2020-09-17 03:44] LABS: BUN/Creatinine Ratio 13 (6-26); Blood Urea Nitrogen 13 mg/dL (8-23); Calcium 9.1 mg/dL (8.6-10.3); Carbon Dioxide 24 mEq/L (23-29); Chloride 106 mEq/L (98-107); Glucose 146 mg/dL (70-105); Magnesium 1.7 mg/dL (1.6-2.6); Osmolality,Calculated 287 (280-300); Phosphorous 3.6 mg/dL (2.7-4.5); Potassium 3.9 mEq/L (3.5-5.1); Sodium 137 mEq/L (136-145); eGFR For African Americans > 60 (> 60); eGFR For Non-African Americans > 60 (> 60)
[2020-09-17] MEDS: *HR* Heparin 5,000 UNIT/ML VIAL SQ SCH ×3 (05:22→22:24)
[2020-09-17] MEDS: Doxycycline 100 MG CAPSULE PO SCH ×2 (08:42→22:23)
[2020-09-17] MEDS: amLODIPine 5 MG TABLET PO SCH (08:42)
[2020-09-17] MEDS: Insulin LISPRO 300 UNITS/3 ML VIAL SQ SCH ×4 (08:43→22:19)
[2020-09-17] MEDS ORDERED: Ketorolac 15 MG/ML VIAL IVP ONE (17:38)
[2020-09-17] MEDS ORDERED: Ketorolac 15 MG/ML VIAL IM ONE (18:35)
[2020-09-18] MEDS: *HR* Heparin 5,000 UNIT/ML VIAL SQ SCH ×3 (05:13→20:52)
[2020-09-18] MEDS: Insulin LISPRO 300 UNITS/3 ML VIAL SQ SCH ×4 (08:51→20:51)
[2020-09-18] MEDS: amLODIPine 5 MG TABLET PO SCH (09:05)
[2020-09-18] MEDS: Doxycycline 100 MG CAPSULE PO SCH ×2 (09:05→19:46)
[2020-09-18 09:13] LABS: Basophils % 0.7 %; Hemoglobin 10.9 g/dL (12.9-16.9); Immature Granulocytes % 0.2 % (0-4)
[2020-09-18 09:15] LABS: Eosinophils # 0.2 K/mcL (0.0-0.6); Eosinophils % 4.7 %; Hematocrit 34.5 % (37.5-50.1); Immature Platelets 3.1 % (1.1-6.1); Lymphocytes # 1.2 K/mcL (0.6-4.6); Lymphocytes % 26.8 %; Mean Corpuscular HGB Conc 31.6 g/dL (31.6-35.5); Mean Corpuscular Hemoglobin 28.6 pg (28.0-33.3); Mean Corpuscular Volume 90.6 fL (83.0-100.0); Monocytes # 0.5 K/mcL (0.0-1.3); Neutrophils # 2.5 K/mcL (1.6-8.9); Nucleated Red Blood Cells 0.5 /100 WBC (0); Platelet Count 154 K/mcL (140-400); Red Blood Count 3.81 M/mcL (4.19-5.50); Red Cell Distribution Width 13.4 % (11.5-14.5); Segmented Neutrophils % 56.6 %; White Blood Count 4.4 K/mcL (4.3-11.1)
[2020-09-18 09:28] LABS: BUN/Creatinine Ratio 12 (6-26); Blood Urea Nitrogen 13 mg/dL (8-23); Carbon Dioxide 20 mEq/L (23-29); Chloride 107 mEq/L (98-107); Glucose 149 mg/dL (70-105); Potassium 3.8 mEq/L (3.5-5.1); Sodium 136 mEq/L (136-145); eGFR For African Americans > 60 (> 60); eGFR For Non-African Americans > 60 (> 60)
[2020-09-18 09:29] LABS: Calcium 9.1 mg/dL (8.6-10.3); Osmolality,Calculated 285 (280-300)
[2020-09-18] MEDS: *HR* OxyCODONE/APAP 10/325 TABLET PO PRN ×3 (10:13→19:47)
[2020-09-19] MEDS: *HR* Heparin 5,000 UNIT/ML VIAL SQ SCH ×3 (04:17→21:02)
[2020-09-19] MEDS: *HR* OxyCODONE/APAP 10/325 TABLET PO PRN ×3 (06:22→20:13)
[2020-09-19] MEDS: Insulin LISPRO 300 UNITS/3 ML VIAL SQ SCH ×4 (08:20→21:10)
[2020-09-19] MEDS: amLODIPine 5 MG TABLET PO SCH (08:31)
[2020-09-19] MEDS: Doxycycline 100 MG CAPSULE PO SCH ×2 (08:32→21:10)
[2020-09-19 09:46] LABS: Hemoglobin 9.8 g/dL (12.9-16.9); Mean Corpuscular HGB Conc 31.6 g/dL (31.6-35.5); Mean Corpuscular Hemoglobin 28.4 pg (28.0-33.3); Mean Corpuscular Volume 89.9 fL (83.0-100.0); Mean Platelet Volume 10.2 fL (9.4-12.4); Platelet Count 142 K/mcL (140-400); Red Blood Count 3.45 M/mcL (4.19-5.50); Red Cell Distribution Width 13.3 % (11.5-14.5)
[2020-09-19 09:57] LABS: BUN/Creatinine Ratio 13 (6-26); Blood Urea Nitrogen 13 mg/dL (8-23); Carbon Dioxide 23 mEq/L (23-29); Chloride 105 mEq/L (98-107); Glucose 134 mg/dL (70-105); Magnesium 1.7 mg/dL (1.6-2.6); Osmolality,Calculated 282 (280-300); Phosphorous 3.8 mg/dL (2.7-4.5); Potassium 3.8 mEq/L (3.5-5.1); Sodium 135 mEq/L (136-145); eGFR For African Americans > 60 (> 60); eGFR For Non-African Americans > 60 (> 60)
[2020-09-19] MEDS: Ondansetron 4 MG/2 ML VIAL IVP PRN (10:11)
[2020-09-19] MEDS ORDERED: Ondansetron 4 MG/2 ML VIAL IVP PRN ×2 (14:46→19:59)
[2020-09-19] MEDS ORDERED: *HR* Labetalol 20 MG/4 ML SYRINGE IVP PRN ×2 (14:46→19:59)
[2020-09-19] MEDS ORDERED: *HR* OxyCODONE Immed Rel 5 MG TABLET PO PRN ×2 (14:46→19:59)
[2020-09-19] MEDS ORDERED: Ropivacaine/PF 0.5% 30 ML VIAL ONE (14:47)
[2020-09-19] MEDS ORDERED: *HR* Midazolam HCl 2 MG/2 ML VIAL ONE (14:47)
[2020-09-19] MEDS ORDERED: *HR* FentaNYL (PF) 100 MCG/2 ML VIAL ONE ×2 (14:47→19:06)
[2020-09-19] MEDS ORDERED: *HR* Propofol 200 MG/20 ML VIAL IVP ONE (14:47)
[2020-09-19] MEDS ORDERED: Dexamethasone 4 MG/ML VIAL ONE (14:48)
[2020-09-19] MEDS ORDERED: ROPIVACAINE/PF/NS 0.25% 1 EACH SYRINGE INTRAART ONE (14:48)
[2020-09-19] MEDS ORDERED: Lidocaine -MPF 2% 2 ML VIAL ONE (14:48)
[2020-09-19] MEDS ORDERED: Bupivacaine/EPI 1:200k 0.25% 50 ML VIAL ONE (14:50)
[2020-09-19] MEDS ORDERED: Lidocaine 1% 0 ML ONE (14:50)
[2020-09-19] MEDS ORDERED: EPHEDrine 50 MG/ML VIAL ONE (16:22)
[2020-09-19] MEDS: *HR* HYDROmorphone (PF) 1 MG/ML SYRINGE IVP PRN ×2 (19:26→19:38)
[2020-09-19] MEDS ORDERED: D5% in Water 1,000 ML IVC PRN (19:59)
[2020-09-19] MEDS ORDERED: Naloxone 0.4 MG/ML INJ IVP PRN (19:59)
[2020-09-19] MEDS ORDERED: *HR* OxyCODONE/APAP 5/325 TABLET PO PRN (19:59)
[2020-09-19] MEDS ORDERED: *HR* Dextrose 50 % in Water (Vial) 50 ML VIAL IVP PRN (19:59)
[2020-09-19] MEDS ORDERED: Dextrose Gel 15 GM/37.5 ML TUBE PO PRN ×2 (19:59)
[2020-09-19] MEDS: *HR* HYDROmorphone PF 0.5 MG/0.5 ML SYRINGE IVP PRN ×2 (21:11→21:52)
[2020-09-20] MEDS: *HR* OxyCODONE/APAP 10/325 TABLET PO PRN ×6 (00:18→21:53)
[2020-09-20] MEDS: Ondansetron 4 MG/2 ML VIAL IVP PRN ×2 (02:24→14:16)
[2020-09-20] MEDS: *HR* Heparin 5,000 UNIT/ML VIAL SQ SCH (04:30)
[2020-09-20 04:46] LABS: Hematocrit 28.7 % (37.5-50.1); Hemoglobin 9.2 g/dL (12.9-16.9); Mean Corpuscular HGB Conc 32.1 g/dL (31.6-35.5); Mean Corpuscular Hemoglobin 28.6 pg (28.0-33.3); Mean Corpuscular Volume 89.1 fL (83.0-100.0); Platelet Count 140 K/mcL (140-400); Red Blood Count 3.22 M/mcL (4.19-5.50); Red Cell Distribution Width 13.2 % (11.5-14.5); White Blood Count 7.7 K/mcL (4.3-11.1)
[2020-09-20 05:07] LABS: BUN/Creatinine Ratio 13 (6-26); Blood Urea Nitrogen 15 mg/dL (8-23); Calcium 8.9 mg/dL (8.6-10.3); Carbon Dioxide 21 mEq/L (23-29); Chloride 104 mEq/L (98-107); Glucose 306 mg/dL (70-105); Magnesium 1.7 mg/dL (1.6-2.6); Osmolality,Calculated 288 (280-300); Phosphorous 2.4 mg/dL (2.7-4.5); Potassium 4.1 mEq/L (3.5-5.1); Sodium 133 mEq/L (136-145); eGFR For African Americans > 60 (> 60); eGFR For Non-African Americans > 60 (> 60)
[2020-09-20] MEDS: amLODIPine 5 MG TABLET PO SCH (09:08)
[2020-09-20] MEDS: Doxycycline 100 MG CAPSULE PO SCH ×2 (09:09→20:39)
[2020-09-20] MEDS: Insulin LISPRO 300 UNITS/3 ML VIAL SQ SCH ×4 (09:11→21:22)
[2020-09-21] MEDS: *HR* OxyCODONE/APAP 10/325 TABLET PO PRN ×4 (03:38→21:55)
[2020-09-21] MEDS: amLODIPine 5 MG TABLET PO SCH (08:04)
[2020-09-21] MEDS: Doxycycline 100 MG CAPSULE PO SCH ×2 (08:04→20:56)
[2020-09-21] MEDS ORDERED: Ketorolac 30 MG/ML VIAL IVP ONE (08:15)
[2020-09-21] MEDS: Insulin LISPRO 300 UNITS/3 ML VIAL SQ SCH ×4 (08:38→20:56)
[2020-09-21 08:49] LABS: Hematocrit 25.4 % (37.5-50.1); Hemoglobin 8.1 g/dL (12.9-16.9); Mean Corpuscular HGB Conc 31.9 g/dL (31.6-35.5); Mean Corpuscular Hemoglobin 28.8 pg (28.0-33.3); Mean Corpuscular Volume 90.4 fL (83.0-100.0); Mean Platelet Volume 10.4 fL (9.4-12.4); Platelet Count 146 K/mcL (140-400); Red Blood Count 2.81 M/mcL (4.19-5.50); Red Cell Distribution Width 13.3 % (11.5-14.5); White Blood Count 7.7 K/mcL (4.3-11.1)
[2020-09-21 09:04] LABS: BUN/Creatinine Ratio 18 (6-26); Blood Urea Nitrogen 18 mg/dL (8-23); Calcium 8.6 mg/dL (8.6-10.3); Carbon Dioxide 23 mEq/L (23-29); Chloride 108 mEq/L (98-107); Glucose 139 mg/dL (70-105); Magnesium 1.9 mg/dL (1.6-2.6); Osmolality,Calculated 290 (280-300); Phosphorous 2.8 mg/dL (2.7-4.5); Potassium 3.9 mEq/L (3.5-5.1); Sodium 138 mEq/L (136-145); eGFR For African Americans > 60 (> 60); eGFR For Non-African Americans > 60 (> 60)
[2020-09-22] MEDS: *HR* OxyCODONE/APAP 10/325 TABLET PO PRN ×4 (02:43→16:55)
[2020-09-22 04:21] LABS: Hematocrit 24.9 % (37.5-50.1); Hemoglobin 7.7 g/dL (12.9-16.9); Mean Corpuscular HGB Conc 30.9 g/dL (31.6-35.5); Mean Corpuscular Hemoglobin 28.7 pg (28.0-33.3); Mean Corpuscular Volume 92.9 fL (83.0-100.0); Mean Platelet Volume 10.3 fL (9.4-12.4); Platelet Count 139 K/mcL (140-400); Red Blood Count 2.68 M/mcL (4.19-5.50); Red Cell Distribution Width 13.4 % (11.5-14.5); White Blood Count 5.5 K/mcL (4.3-11.1)
[2020-09-22 04:41] LABS: BUN/Creatinine Ratio 19 (6-26); Blood Urea Nitrogen 17 mg/dL (8-23); Calcium 8.3 mg/dL (8.6-10.3); Carbon Dioxide 23 mEq/L (23-29); Chloride 108 mEq/L (98-107); Glucose 135 mg/dL (70-105); Magnesium 1.8 mg/dL (1.6-2.6); Osmolality,Calculated 288 (280-300); Phosphorous 3.4 mg/dL (2.7-4.5); Potassium 3.9 mEq/L (3.5-5.1); Sodium 137 mEq/L (136-145); eGFR For African Americans > 60 (> 60); eGFR For Non-African Americans > 60 (> 60)
[2020-09-22] MEDS: amLODIPine 5 MG TABLET PO SCH (07:42)
[2020-09-22] MEDS: Doxycycline 100 MG CAPSULE PO SCH (07:43)
[2020-09-22] MEDS: Insulin LISPRO 300 UNITS/3 ML VIAL SQ SCH ×2 (07:50→16:55)
[2020-09-22] MEDS: Ondansetron 4 MG/2 ML VIAL IVP PRN (09:18)
[2020-09-22 11:25] VITALS: BP 117/78
[2020-09-23] MEDS ORDERED: *HR* Rivaroxaban 10 MG TABLET PO ONE (11:30)
== END 2020-09-22 18:30 | disposition home or self-care (01) | DRG 313 ==
LOC: 3ANU 08:48 → EMEROOARM 08:48 → SUATTDRO 12:49 → 3ANU 13:38 → SUATTDRO 09-10 16:53
PROVIDERS: ADMIT Internal Medicine; ATTEND Internal Medicine

== ENCOUNTER 2021-05-14 11:47 | Observation (INO) ==
[2021-05-14] MEDS ORDERED: Isovue-370 500 ML BOTTLE IVP ONE (12:27)
[2021-05-14] MEDS ORDERED: 0.9 % Sodium Chloride 1,000 ML IVC ONE (12:28)
[2021-05-14] MEDS ORDERED: Ketorolac 15 MG/ML VIAL IVP ONE (12:28)
[2021-05-14] MEDS ORDERED: Ondansetron 4 MG/2 ML VIAL IVP ONE (12:28)
[2021-05-14] MEDS ORDERED: Famotidine 20 MG/2 ML VIAL IVP ONE (12:28)
[2021-05-14] MEDS ORDERED: Piperacillin/Tazobactam 3.375 GM in Water for inj. (sterile) 20 ML IVP ONE (12:29)
[2021-05-14] MEDS ORDERED: Vancomycin 1,500 MG/265 ML IV.SOLN IVPB ONE (12:39)
[2021-05-14 12:57] LABS: Basophils % 0.3 %; Eosinophils # 0.1 K/mcL (0.0-0.6); Eosinophils % 0.7 %; Hematocrit 40.4 % (37.5-50.1); Hemoglobin 13.4 g/dL (12.9-16.9); Immature Granulocytes % 0.6 % (0-4); Lymphocytes # 1.2 K/mcL (0.6-4.6); Mean Corpuscular HGB Conc 33.2 g/dL (31.6-35.5); Mean Corpuscular Hemoglobin 30.3 pg (28.0-33.3); Mean Corpuscular Volume 91.4 fL (83.0-100.0); Mean Platelet Volume 8.7 fL (9.4-12.4); Monocytes # 0.6 K/mcL (0.0-1.3); Monocytes % 7.1 %; Platelet Count 177 K/mcL (140-400); Red Blood Count 4.42 M/mcL (4.19-5.50); Red Cell Distribution Width 12.6 % (11.5-14.5); Segmented Neutrophils % 78.3 %; White Blood Count 8.9 K/mcL (4.3-11.1)
[2021-05-14 14:13] LABS: Alanine Aminotransferase 25 Units/L (7-52); Albumin 4.7 g/dL (3.5-5.7); Albumin/Globulin Ratio 1.2 (1.1-2.2); Alkaline Phosphatase 244 Units/L (34-104); Aspartate Amino Transferase 44 Units/L (13-39); BUN/Creatinine Ratio 15 (6-26); Bilirubin,Direct 0.2 mg/dL (0.0-0.2); Bilirubin,Indirect 0.4 mg/dL (0.0-1.0); Bilirubin,Total 0.6 mg/dL (0.3-1.0); Blood Urea Nitrogen 16 mg/dL (8-23); Calcium 9.8 mg/dL (8.6-10.3); Carbon Dioxide 17 mEq/L (23-29); Chloride 89 mEq/L (98-107); Globulin 3.9 g/dL (2.4-3.5); Glucose 110 mg/dL (70-105); Osmolality,Calculated 256 (280-300); Potassium 5.5 mEq/L (3.5-5.1); Sodium 122 mEq/L (136-145); Total Protein 8.6 g/dL (6.4-8.9); eGFR For African Americans > 60 (> 60); eGFR For Non-African Americans > 60 (> 60)
[2021-05-14] MEDS ORDERED: *HR* OxyCODONE/APAP 5/325 TABLET PO ONE (14:17)
[2021-05-14] MEDS ORDERED: Naloxone 0.4 MG/ML INJ IVP PRN (16:13)
[2021-05-14] MEDS ORDERED: Acetaminophen 325 MG TABLET PO PRN (16:13)
[2021-05-14] MEDS ORDERED: *HR* HYDROcodone/Acet 5/325 mg TABLET PO PRN (16:13)
[2021-05-14] MEDS ORDERED: Ondansetron 4 MG/2 ML VIAL IVP PRN (16:13)
[2021-05-14] MEDS ORDERED: *HR* Dextrose 50 % in Water (Vial) 50 ML VIAL IVP PRN (16:18)
[2021-05-14] MEDS ORDERED: Dextrose Gel 15 GM/37.5 ML TUBE PO PRN ×2 (16:18)
[2021-05-14] MEDS ORDERED: D5% in Water 1,000 ML IVC PRN (16:18)
[2021-05-14 16:51] LABS: Estimated Average Glucose 117 mg/dl; Hemoglobin A1C 5.7 %
[2021-05-14 17:23] LABS: C-Reactive Protein 17 mg/L (Less than 10)
[2021-05-14] MEDS: Insulin LISPRO 300 UNITS/3 ML VIAL SUBQ SCH (18:18)
[2021-05-14] MEDS: *HR* Heparin 5,000 UNIT/ML VIAL SQ SCH (18:22)
[2021-05-14 18:57] LABS: BUN/Creatinine Ratio 16 (6-26); Blood Urea Nitrogen 17 mg/dL (8-23); Carbon Dioxide 21 mEq/L (23-29); Chloride 94 mEq/L (98-107); Glucose 93 mg/dL (70-105); Osmolality,Calculated 257 (280-300); Potassium 5.6 mEq/L (3.5-5.1); Sodium 123 mEq/L (136-145); eGFR For African Americans > 60 (> 60); eGFR For Non-African Americans > 60 (> 60)
[2021-05-14 19:05] LABS: Potassium,Urine 37.5 mEq/L; Sodium, Urine 34.3 mEq/L
[2021-05-14] MEDS: Melatonin 3 MG TABLET PO SCH (19:59)
[2021-05-14] MEDS: Gabapentin 100 MG CAPSULE PO SCH (19:59)
[2021-05-14] MEDS: *HR* OxyCODONE/APAP 5/325 TABLET PO PRN (22:09)
[2021-05-14] MEDS: Vancomycin 1,500 MG/265 ML IV.SOLN IVPB SCH (23:41)
[2021-05-14] MEDS: Piperacillin/Tazobactam 3.375 GM in 0.9 % Sodium Chloride Mini Bag 100 ML IVPB SCH (23:41)
[2021-05-15] MEDS: *HR* Heparin 5,000 UNIT/ML VIAL SQ SCH ×2 (04:31→16:23)
[2021-05-15] MEDS: *HR* OxyCODONE/APAP 5/325 TABLET PO PRN ×4 (04:31→22:55)
[2021-05-15 04:44] LABS: Basophils % 0.8 %; Eosinophils # 0.2 K/mcL (0.0-0.6); Eosinophils % 4.4 %; Immature Granulocytes % 0.6 % (0-4); Lymphocytes # 0.5 K/mcL (0.6-4.6); Lymphocytes % 8.8 %; Mean Corpuscular HGB Conc 32.3 g/dL (31.6-35.5); Mean Corpuscular Hemoglobin 30.1 pg (28.0-33.3); Mean Corpuscular Volume 93.1 fL (83.0-100.0); Mean Platelet Volume 8.9 fL (9.4-12.4); Monocytes # 0.6 K/mcL (0.0-1.3); Monocytes % 11.1 %; Neutrophils # 3.9 K/mcL (1.6-8.9); Platelet Count 132 K/mcL (140-400); Red Blood Count 3.76 M/mcL (4.19-5.50); Red Cell Distribution Width 12.6 % (11.5-14.5); Segmented Neutrophils % 74.3 %; White Blood Count 5.2 K/mcL (4.3-11.1)
[2021-05-15 04:50] LABS: Hemoglobin 11.3 g/dL (12.9-16.9)
[2021-05-15 04:58] LABS: BUN/Creatinine Ratio 16 (6-26); Blood Urea Nitrogen 18 mg/dL (8-23); Carbon Dioxide 20 mEq/L (23-29); Chloride 97 mEq/L (98-107); Glucose 87 mg/dL (70-105); Magnesium 2.1 mg/dL (1.6-2.6); Osmolality,Calculated 263 (280-300); Potassium 5.1 mEq/L (3.5-5.1); Sodium 126 mEq/L (136-145); eGFR For African Americans > 60 (> 60); eGFR For Non-African Americans > 60 (> 60)
[2021-05-15] MEDS: Insulin LISPRO 300 UNITS/3 ML VIAL SUBQ SCH ×3 (07:43→16:17)
[2021-05-15] MEDS: Gabapentin 100 MG CAPSULE PO SCH ×3 (08:50→20:36)
[2021-05-15] MEDS: Piperacillin/Tazobactam 3.375 GM in 0.9 % Sodium Chloride Mini Bag 100 ML IVPB SCH ×2 (08:50→16:16)
[2021-05-15] MEDS ORDERED: NON-FORMULARY MEDICATION 1 EACH EACH (Lisinopril [Lisinopril] 40 MG Tablet) PO SCH (09:00)
[2021-05-15] MEDS: lisinopriL 20 MG TABLET PO SCH (10:48)
[2021-05-15] MEDS: Vancomycin 1,500 MG/265 ML IV.SOLN IVPB SCH (11:30)
[2021-05-15] MEDS: Triamcinolone Acet 0.1% CRM 15 GM TUBE TP SCH ×2 (13:10→20:36)
[2021-05-15] MEDS: Melatonin 3 MG TABLET PO SCH (20:36)
[2021-05-16 00:29] LABS: Basophils % 0.5 %; Eosinophils # 0.3 K/mcL (0.0-0.6); Eosinophils % 6.5 %; Hematocrit 33.4 % (37.5-50.1); Hemoglobin 10.9 g/dL (12.9-16.9); Immature Granulocytes % 0.2 % (0-4); Lymphocytes # 0.7 K/mcL (0.6-4.6); Lymphocytes % 16.5 %; Mean Corpuscular HGB Conc 32.6 g/dL (31.6-35.5); Mean Corpuscular Hemoglobin 30.4 pg (28.0-33.3); Mean Corpuscular Volume 93.3 fL (83.0-100.0); Mean Platelet Volume 8.6 fL (9.4-12.4); Monocytes # 0.6 K/mcL (0.0-1.3); Monocytes % 14.1 %; Neutrophils # 2.6 K/mcL (1.6-8.9); Platelet Count 119 K/mcL (140-400); Red Blood Count 3.58 M/mcL (4.19-5.50); Segmented Neutrophils % 62.2 %; White Blood Count 4.2 K/mcL (4.3-11.1)
[2021-05-16 00:45] LABS: BUN/Creatinine Ratio 13 (6-26); Blood Urea Nitrogen 17 mg/dL (8-23); Calcium 9.2 mg/dL (8.6-10.3); Carbon Dioxide 23 mEq/L (23-29); Chloride 99 mEq/L (98-107); Glucose 92 mg/dL (70-105); Osmolality,Calculated 273 (280-300); Potassium 4.8 mEq/L (3.5-5.1); Sodium 131 mEq/L (136-145); eGFR For African Americans > 60 (> 60); eGFR For Non-African Americans 58 (> 60)
[2021-05-16] MEDS: Piperacillin/Tazobactam 3.375 GM in 0.9 % Sodium Chloride Mini Bag 100 ML IVPB SCH ×2 (00:55→08:00)
[2021-05-16] MEDS: Vancomycin 1,500 MG/265 ML IV.SOLN IVPB SCH (00:55)
[2021-05-16 01:01] LABS: Thyroid Stimulating Hormone 2.715 mcIU/mL (0.340-5.600)
[2021-05-16] MEDS: *HR* Heparin 5,000 UNIT/ML VIAL SQ SCH ×2 (03:59→16:53)
[2021-05-16] MEDS: Gabapentin 100 MG CAPSULE PO SCH ×2 (08:04→14:55)
[2021-05-16] MEDS: *HR* OxyCODONE/APAP 5/325 TABLET PO PRN ×2 (08:04→14:55)
[2021-05-16] MEDS: lisinopriL 20 MG TABLET PO SCH (08:04)
[2021-05-16] MEDS: Triamcinolone Acet 0.1% CRM 15 GM TUBE TP SCH (08:06)
[2021-05-16] MEDS: Insulin LISPRO 300 UNITS/3 ML VIAL SUBQ SCH ×3 (08:06→16:53)
[2021-05-16 11:44] VITALS: BP 160/99
[2021-05-16] MEDS ORDERED: Vancomycin 1,250 MG/262.5 ML IV.SOLN IVPB SCH (12:00)
[2021-05-16] MEDS ORDERED: Doxycycline 100 MG CAPSULE PO SCH (21:00)
== END 2021-05-16 18:30 | disposition home or self-care (01) ==
LOC: 2ANU 11:47 → EMEROOARM 11:47 → SUATTDRO 16:14 → 2ANU 17:26
PROVIDERS: ADMIT Internal Medicine; ATTEND Internal Medicine

== ENCOUNTER 2021-12-10 09:41 | Observation (INO) ==
[2021-12-10] MEDS ORDERED: CeFAZolin Syr 2,000MG/20 ML 2,000 MG/20 ML SYRINGE IVPB ONE (10:08)
[2021-12-10] MEDS ORDERED: *HR* HYDROmorphone PF 0.5 MG/0.5 ML SYRINGE IVP PRN ×2 (10:09→18:11)
[2021-12-10] MEDS ORDERED: Ondansetron 4 MG/2 ML VIAL IVP PRN ×2 (10:09→18:11)
[2021-12-10] MEDS ORDERED: *HR* OxyCODONE Immed Rel 5 MG TABLET PO PRN ×3 (10:09→18:11)
[2021-12-10] MEDS ORDERED: Ringers Solution, Lactated 1,000 ML IVC SCH ×2 (10:15→18:11)
[2021-12-10] MEDS ORDERED: Famotidine 20 MG/2 ML VIAL IVP ONE (10:30)
[2021-12-10] MEDS ORDERED: Acetaminophen IV 1,000 MG/100 ML BAG IVPB ONE ×2 (10:30→18:11)
[2021-12-10] MEDS ORDERED: ROPIVACAINE/PF/NS 0.25% 1 EACH SYRINGE INTRAART ONE (10:33)
[2021-12-10] MEDS ORDERED: Ropivacaine/PF 0.5% 30 ML VIAL ONE (10:33)
[2021-12-10] MEDS ORDERED: *HR* FentaNYL (PF) 100 MCG/2 ML VIAL ONE (10:41)
[2021-12-10] MEDS ORDERED: *HR* Midazolam HCl 2 MG/2 ML VIAL ONE (10:41)
[2021-12-10] MEDS ORDERED: Ondansetron 4 MG/2 ML VIAL ONE (12:03)
[2021-12-10] MEDS ORDERED: Lidocaine -MPF 2% 5 ML VIAL ONE (12:03)
[2021-12-10] MEDS ORDERED: Lidocaine -MPF 4% 5 ML AMPUL ONE (12:03)
[2021-12-10] MEDS ORDERED: *HR* Propofol 200 MG/20 ML VIAL IVP ONE (12:04)
[2021-12-10] MEDS ORDERED: EPHEDrine 50 MG/ML VIAL ONE (13:30)
[2021-12-10] MEDS ORDERED: *HR* HYDROMORPHONE 2 MG/ML VIAL ONE (16:14)
[2021-12-10] MEDS ORDERED: D5% in Water 1,000 ML IVC PRN (18:00)
[2021-12-10] MEDS ORDERED: *HR* Dextrose 50 % in Water (Syg) 50 ML SYRINGE IVP PRN (18:00)
[2021-12-10] MEDS ORDERED: Dextrose Gel 15 GM/37.5 ML TUBE PO PRN ×2 (18:00)
[2021-12-10] MEDS ORDERED: Ondansetron ODT 4 MG TAB.RAPDIS SL PRN (18:11)
[2021-12-10] MEDS ORDERED: Naloxone 0.4 MG/ML INJ IVP PRN (18:11)
[2021-12-10] MEDS ORDERED: *HR* OxyCODONE/APAP 5/325 TABLET PO PRN (18:11)
[2021-12-10] MEDS ORDERED: Insulin LISPRO 300 UNITS/3 ML VIAL SUBQ SCH (21:00)
[2021-12-11 03:25] LABS: Basophils % 0.1 %; Hematocrit 29.2 % (37.5-50.1); Hemoglobin 9.6 g/dL (12.9-16.9); Immature Granulocytes % 0.4 % (0-4); Lymphocytes % 10.1 %; Mean Corpuscular HGB Conc 32.9 g/dL (31.6-35.5); Mean Corpuscular Hemoglobin 30.8 pg (28.0-33.3); Mean Corpuscular Volume 93.6 fL (83.0-100.0); Mean Platelet Volume 8.8 fL (9.4-12.4); Monocytes # 0.9 K/mcL (0.0-1.3); Neutrophils # 8.3 K/mcL (1.6-8.9); Platelet Count 180 K/mcL (140-400); Red Blood Count 3.12 M/mcL (4.19-5.50); Red Cell Distribution Width 13.2 % (11.5-14.5); Segmented Neutrophils % 80.4 %; White Blood Count 10.3 K/mcL (4.3-11.1)
[2021-12-11 03:44] LABS: Calcium 8.7 mg/dL (8.6-10.3); Potassium 5.1 mEq/L (3.5-5.1)
[2021-12-11] MEDS: *HR* OxyCODONE/APAP 10/325 TABLET PO PRN ×2 (05:21→12:44)
[2021-12-11] MEDS ORDERED: Insulin LISPRO 300 UNITS/3 ML VIAL SUBQ SCH (07:30)
[2021-12-11] MEDS ORDERED: ceFAZolin 2,000 MG in 0.9 % Sodium Chloride 100 ML IVPB SCH (08:00)
[2021-12-11] MEDS ORDERED: *HR* Rivaroxaban 10 MG TABLET PO SCH (08:00)
[2021-12-11] MEDS ORDERED: 0.9 % Sodium Chloride 1,000 ML IVC ONE (08:22)
[2021-12-11] MEDS ORDERED: amLODIPine 5 MG TABLET PO SCH (09:00)
[2021-12-11] MEDS ORDERED: Cholecalciferol (D-3) 1,000 UNIT (25MCG) TABLET PO SCH (09:00)
[2021-12-11] MEDS ORDERED: Famotidine 20 MG TABLET PO SCH (09:00)
[2021-12-11] MEDS ORDERED: lisinopriL 20 MG TABLET PO SCH (09:00)
[2021-12-11] MEDS: Gabapentin 100 MG CAPSULE PO SCH ×2 (09:25→15:07)
[2021-12-11 10:24] VITALS: BP 137/82; PULSE 85; TEMP 97.8; O2SAT 99
[2021-12-11 13:08] LABS: BUN/Creatinine Ratio 13 (6-26); Blood Urea Nitrogen 17 mg/dL (8-23); Calcium 8.6 mg/dL (8.6-10.3); Carbon Dioxide 23 mEq/L (23-29); Chloride 104 mEq/L (98-107); Glucose 168 mg/dL (70-105); Osmolality,Calculated 281 (280-300); Potassium 4.6 mEq/L (3.5-5.1); Sodium 133 mEq/L (136-145); eGFR For African Americans > 60 (> 60); eGFR For Non-African Americans 57 (> 60)
== END 2021-12-11 17:10 | disposition home or self-care (01) ==
LOC: 4WAOSI 09:41 → SDCAOSI 09:41 → 4WAOSI 17:40
PROVIDERS: ADMIT Student in an Organized Health Care Education/Training Program; ATTEND Student in an Organized Health Care Education/Training Program

== ENCOUNTER 2022-08-02 09:20 | Inpatient (IN) ==
[2022-08-02 12:05] LABS: Basophils % 0.3 %; Eosinophils # 0.2 K/mcL (0.0-0.6); Eosinophils % 2.3 %; Hematocrit 36.9 % (37.5-50.1); Hemoglobin 12.1 g/dL (12.9-16.9); Immature Granulocytes % 0.5 % (0-4); Lymphocytes # 1.2 K/mcL (0.6-4.6); Lymphocytes % 15.4 %; Mean Corpuscular HGB Conc 32.8 g/dL (31.6-35.5); Mean Corpuscular Hemoglobin 28.8 pg (28.0-33.3); Mean Corpuscular Volume 87.9 fL (83.0-100.0); Mean Platelet Volume 9.1 fL (9.4-12.4); Monocytes # 1.2 K/mcL (0.0-1.3); Monocytes % 14.4 %; Neutrophils # 5.4 K/mcL (1.6-8.9); Platelet Count 165 K/mcL (140-400); Red Cell Distribution Width 13.1 % (11.5-14.5); Segmented Neutrophils % 67.1 %
[2022-08-02 12:23] LABS: Albumin 3.9 g/dL (3.5-5.7); Albumin/Globulin Ratio 1.1 (1.1-2.2); Bilirubin,Direct 0.2 mg/dL (0.0-0.2); Bilirubin,Indirect 0.4 mg/dL (0.0-1.0); Bilirubin,Total 0.6 mg/dL (0.3-1.0); Calcium 8.9 mg/dL (8.6-10.3); Globulin 3.5 g/dL (2.4-3.5); Potassium 4.6 mEq/L (3.5-5.1); Total Protein 7.4 g/dL (6.4-8.9)
[2022-08-02] MEDS: 0.9 % Sodium Chloride 1,000 ML IVC SCH ×5 (13:04→20:54)
[2022-08-02 13:22] LABS: Bilirubin,Urine Negative (Negative); Blood,Urine Negative (Negative); Clarity,Urine Clear (Clear); Color,Urine Colorless (Yellow); Glucose,Urine (UA) Normal (Normal); Ketones,Urine Negative (Negative); Leukocyte Esterase,Urine Negative (Negative); Nitrite,Urine Negative (Negative); Protein,Urine Trace mg/dL (Neg-Trace); Specific Gravity,Urine 1.008 (1.010-1.025); Urobilinogen,Urine Normal (Normal)
[2022-08-02] MEDS ORDERED: Ondansetron 4 MG/2 ML VIAL IVP ONE (13:38)
[2022-08-02] MEDS ORDERED: *HR* FentaNYL (PF) 100 MCG/2 ML VIAL EP ONE (13:38)
[2022-08-02] MEDS ORDERED: Naloxone 0.4 MG/ML INJ IVP PRN (14:06)
[2022-08-02] MEDS ORDERED: Ondansetron 4 MG/2 ML VIAL IVP PRN (14:06)
[2022-08-02] MEDS ORDERED: diazePAM 10 MG/2 ML SYRINGE IVP PRN ×2 (14:09)
[2022-08-02] MEDS ORDERED: D5% in Water 1,000 ML IVC PRN (14:15)
[2022-08-02] MEDS ORDERED: *HR* Dextrose 50 % in Water (Syg) 50 ML SYRINGE IVP PRN (14:15)
[2022-08-02] MEDS: Morphine Sulfate 2 MG/ML SYRINGE IVP PRN ×2 (16:04→23:47)
[2022-08-02] MEDS: Thiamine (B-1) 100 MG, Folic Acid 1 MG, MVI, adult with vitamin K 10 ML in 0.9 % Sodi... IVPB SCH (17:17)
[2022-08-02] MEDS: Insulin LISPRO 300 UNITS/3 ML VIAL SUBQ SCH ×2 (18:52→20:11)
[2022-08-02] MEDS: *HR* HYDROmorphone (PF) 1 MG/ML SYRINGE IVP PRN (20:55)
[2022-08-02 22:25] LABS: Calcium 8.9 mg/dL (8.6-10.3); Potassium 4.5 mEq/L (3.5-5.1)
[2022-08-03] MEDS: Insulin LISPRO 300 UNITS/3 ML VIAL SUBQ SCH ×6 (00:48→20:01)
[2022-08-03] MEDS: *HR* HYDROmorphone (PF) 1 MG/ML SYRINGE IVP PRN ×4 (04:06→20:13)
[2022-08-03] MEDS: Famotidine 20 MG/2 ML VIAL IVP SCH ×2 (05:06→17:19)
[2022-08-03] MEDS: *HR* Enoxaparin 40 MG/0.4 ML SYRINGE SQ SCH (05:07)
[2022-08-03] MEDS: Morphine Sulfate 2 MG/ML SYRINGE IVP PRN (05:08)
[2022-08-03] MEDS ORDERED: NIFEdipine Immed Rel 10 MG CAPSULE PO ONE (06:06)
[2022-08-03 08:05] LABS: Hematocrit 36.1 % (37.5-50.1); Hemoglobin 11.7 g/dL (12.9-16.9); Mean Corpuscular HGB Conc 32.4 g/dL (31.6-35.5); Mean Corpuscular Hemoglobin 28.4 pg (28.0-33.3); Mean Corpuscular Volume 87.6 fL (83.0-100.0); Mean Platelet Volume 9.5 fL (9.4-12.4); Platelet Count 190 K/mcL (140-400); Red Blood Count 4.12 M/mcL (4.19-5.50); Red Cell Distribution Width 13.1 % (11.5-14.5); White Blood Count 8.3 K/mcL (4.3-11.1)
[2022-08-03 08:25] LABS: Albumin 3.9 g/dL (3.5-5.7); Albumin/Globulin Ratio 1.2 (1.1-2.2); Bilirubin,Total 0.5 mg/dL (0.3-1.0); Calcium 9.1 mg/dL (8.6-10.3); Globulin 3.3 g/dL (2.4-3.5); Magnesium 1.6 mg/dL (1.6-2.6); Potassium 4.4 mEq/L (3.5-5.1); Total Protein 7.2 g/dL (6.4-8.9)
[2022-08-03] MEDS: 0.9 % Sodium Chloride 1,000 ML IVC SCH ×3 (08:28→17:18)
[2022-08-03] MEDS: Thiamine (B-1) 100 MG, Folic Acid 1 MG, MVI, adult with vitamin K 10 ML in 0.9 % Sodi... IVPB SCH (18:31)
[2022-08-04] MEDS: 0.9 % Sodium Chloride 1,000 ML IVC SCH ×5 (00:27→20:23)
[2022-08-04] MEDS: Insulin LISPRO 300 UNITS/3 ML VIAL SUBQ SCH ×5 (00:45→17:12)
[2022-08-04] MEDS: *HR* HYDROmorphone (PF) 1 MG/ML SYRINGE IVP PRN ×3 (03:00→22:23)
[2022-08-04 05:13] LABS: Alanine Aminotransferase 14 Units/L (7-52); Albumin 3.6 g/dL (3.5-5.7); Albumin/Globulin Ratio 1.1 (1.1-2.2); Alkaline Phosphatase 178 Units/L (34-104); Aspartate Amino Transferase 28 Units/L (13-39); BUN/Creatinine Ratio 13 (6-26); Bilirubin,Total 0.5 mg/dL (0.3-1.0); Blood Urea Nitrogen 11 mg/dL (8-23); Calcium 8.7 mg/dL (8.6-10.3); Carbon Dioxide 19 mEq/L (23-29); Chloride 105 mEq/L (98-107); Globulin 3.2 g/dL (2.4-3.5); Glucose 129 mg/dL (70-105); Osmolality,Calculated 281 (280-300); Potassium 3.9 mEq/L (3.5-5.1); Sodium 135 mEq/L (136-145); Total Protein 6.8 g/dL (6.4-8.9)
[2022-08-04] MEDS: Famotidine 20 MG/2 ML VIAL IVP SCH ×2 (06:04→17:34)
[2022-08-04] MEDS: *HR* Enoxaparin 40 MG/0.4 ML SYRINGE SQ SCH (06:05)
[2022-08-04] MEDS: Morphine Sulfate 2 MG/ML SYRINGE IVP PRN ×3 (08:24→15:57)
[2022-08-04] MEDS: Gabapentin 300 MG CAPSULE PO SCH ×3 (12:09→20:23)
[2022-08-04] MEDS: lisinopriL 20 MG TABLET PO SCH (12:09)
[2022-08-04] MEDS: Thiamine (B-1) 100 MG, Folic Acid 1 MG, MVI, adult with vitamin K 10 ML in 0.9 % Sodi... IVPB SCH (17:34)
[2022-08-04] MEDS ORDERED: Melatonin 3 MG TABLET PO PRN (20:26)
[2022-08-05] MEDS: Insulin LISPRO 300 UNITS/3 ML VIAL SUBQ SCH ×6 (00:03→17:30)
[2022-08-05] MEDS: amLODIPine 5 MG TABLET PO SCH ×3 (04:30→13:21)
[2022-08-05] MEDS: *HR* HYDROmorphone (PF) 1 MG/ML SYRINGE IVP PRN ×2 (05:03→08:16)
[2022-08-05 06:12] LABS: Hematocrit 30.1 % (37.5-50.1); Mean Corpuscular HGB Conc 33.2 g/dL (31.6-35.5); Mean Corpuscular Volume 87.2 fL (83.0-100.0); Platelet Count 163 K/mcL (140-400); Red Blood Count 3.45 M/mcL (4.19-5.50); Red Cell Distribution Width 13.2 % (11.5-14.5); White Blood Count 5.3 K/mcL (4.3-11.1)
[2022-08-05] MEDS: Famotidine 20 MG/2 ML VIAL IVP SCH (06:25)
[2022-08-05] MEDS: *HR* Enoxaparin 40 MG/0.4 ML SYRINGE SQ SCH (06:26)
[2022-08-05 06:33] LABS: Alanine Aminotransferase 19 Units/L (7-52); Albumin 3.3 g/dL (3.5-5.7); Albumin/Globulin Ratio 1.1 (1.1-2.2); Alkaline Phosphatase 160 Units/L (34-104); Aspartate Amino Transferase 37 Units/L (13-39); BUN/Creatinine Ratio 10 (6-26); Bilirubin,Total 0.4 mg/dL (0.3-1.0); Blood Urea Nitrogen 8 mg/dL (8-23); Calcium 8.6 mg/dL (8.6-10.3); Carbon Dioxide 20 mEq/L (23-29); Chloride 105 mEq/L (98-107); Globulin 2.9 g/dL (2.4-3.5); Glucose 111 mg/dL (70-105); Osmolality,Calculated 275 (280-300); Potassium 3.3 mEq/L (3.5-5.1); Sodium 133 mEq/L (136-145); Total Protein 6.2 g/dL (6.4-8.9)
[2022-08-05] MEDS: lisinopriL 20 MG TABLET PO SCH (08:08)
[2022-08-05] MEDS: Gabapentin 300 MG CAPSULE PO SCH ×3 (08:08→19:51)
[2022-08-05] MEDS: Multivit/Ca/Min/Fe/FA 1 TAB TABLET PO SCH (13:22)
[2022-08-05] MEDS: Thiamine (B-1) 100 MG TABLET PO SCH (13:22)
[2022-08-05] MEDS: Morphine Sulfate 2 MG/ML SYRINGE IVP PRN ×3 (13:27→21:04)
[2022-08-05] MEDS ORDERED: Insulin LISPRO 300 UNITS/3 ML VIAL SUBQ SCH (21:00)
[2022-08-06] MEDS: *HR* Enoxaparin 40 MG/0.4 ML SYRINGE SQ SCH ×2 (04:38→04:42)
[2022-08-06] MEDS: Morphine Sulfate 2 MG/ML SYRINGE IVP PRN ×2 (04:38→08:04)
[2022-08-06] MEDS: Gabapentin 300 MG CAPSULE PO SCH (08:04)
[2022-08-06] MEDS: Multivit/Ca/Min/Fe/FA 1 TAB TABLET PO SCH (08:04)
[2022-08-06] MEDS: amLODIPine 5 MG TABLET PO SCH (08:04)
[2022-08-06] MEDS: Thiamine (B-1) 100 MG TABLET PO SCH (08:04)
[2022-08-06] MEDS: lisinopriL 20 MG TABLET PO SCH (08:04)
[2022-08-06] MEDS: Insulin LISPRO 300 UNITS/3 ML VIAL SUBQ SCH ×2 (08:05→13:10)
[2022-08-06] MEDS ORDERED: Ibuprofen 400 MG TABLET PO PRN (10:56)
[2022-08-06 11:10] LABS: Hematocrit 34.2 % (37.5-50.1); Hemoglobin 11.2 g/dL (12.9-16.9); Mean Corpuscular HGB Conc 32.7 g/dL (31.6-35.5); Mean Corpuscular Volume 85.5 fL (83.0-100.0); Mean Platelet Volume 9.2 fL (9.4-12.4); Platelet Count 184 K/mcL (140-400); Red Cell Distribution Width 12.9 % (11.5-14.5); White Blood Count 5.1 K/mcL (4.3-11.1)
[2022-08-06 11:29] LABS: Alanine Aminotransferase 55 Units/L (7-52); Albumin 3.7 g/dL (3.5-5.7); Albumin/Globulin Ratio 1.1 (1.1-2.2); Alkaline Phosphatase 220 Units/L (34-104); Aspartate Amino Transferase 72 Units/L (13-39); BUN/Creatinine Ratio 8 (6-26); Bilirubin,Total 0.4 mg/dL (0.3-1.0); Blood Urea Nitrogen 7 mg/dL (8-23); Calcium 9.5 mg/dL (8.6-10.3); Carbon Dioxide 21 mEq/L (23-29); Chloride 102 mEq/L (98-107); Globulin 3.4 g/dL (2.4-3.5); Glucose 236 mg/dL (70-105); Magnesium 1.6 mg/dL (1.6-2.6); Osmolality,Calculated 280 (280-300); Potassium 3.6 mEq/L (3.5-5.1); Sodium 132 mEq/L (136-145); Total Protein 7.1 g/dL (6.4-8.9)
[2022-08-06 11:59] VITALS: BP 152/90; PULSE 82; TEMP 98; O2SAT 98
== END 2022-08-06 15:50 | disposition home or self-care (01) | DRG 439 ==
LOC: EMEROOARM 09:20 → 3ANU 09:20 → SUATTDRO 14:43 → 3ANU 15:14
PROVIDERS: ADMIT Student in an Organized Health Care Education/Training Program; ATTEND Internal Medicine